=== PATIENT | female | born 1960 | race Caucasian/White ===

== ENCOUNTER 2020-01-25 07:06 | Outpatient (CLI) | payer OTHER, SELFPAY | END 2020-01-25 07:07 | disposition home or self-care (01) | LOC: ANHCOVIDDT 07:06 | PROVIDERS: PCP Family Medicine; Visit Provider Internal Medicine Gastroenterology | DX: Z01.818 Encounter for other preprocedural examination (principal); Z11.59 Encounter for screening for other viral diseases | CPT/HCPCS: 87635; C9803; U0003 ==

== ENCOUNTER 2020-01-27 00:11 | Day surgery (SDC) | payer OTHER, SELFPAY ==
[2020-01-15 10:40] VITALS: BMI 39.5
[2020-01-27 08:49] VITALS: BMI 41.8
[2020-01-27 08:50] VITALS: BP 147/65; PULSE 69; RESP 16; TEMP 36.4; O2SAT 99
--- NOTE | 2020-01-27 08:53 | P.PNAN_ITS ---
Anes - Initial Pre Proc Eval Procedure: Operation Date: 01/27/20 09:30 Proposed Procedures p Screening Colonoscopy - Wilberto Parham MD Date/Time: 01/27/20 08:53 Surgeon: Wilberto Parham MD Pre Op Diagnosis: hx of polyps Patient Data Age: 59 Gender: F Height: 5 ft 2 in Weight: 103.7 kg Last Vital Signs Temp 97.5 F L 01/27/20 08:50 Pulse 69 01/27/20 08:50 Resp 16 01/27/20 08:50 BP 147/65 H 01/27/20 08:50 Pulse Ox 99 01/27/20 08:50 Allergies Allergy/AdvReac Type Severity Reaction Status Date / Time gabapentin Allergy Intermediate tingling Verified 01/27/20 08:47 in lips and tongue....sleepiness carbamazepine Allergy Unknown Drowsy Verified 01/27/20 08:47 varenicline Allergy Unknown drowsiness Verified 01/27/20 08:47 and tingling lips Home Medications Medication Instructions Recorded Confirmed Type lisinopril 40 mg tablet 40 mg PO DAILY #30 tablet 09/21/19 01/15/20 Rx ropinirole 1 mg tablet 1 mg PO TID #90 tablet 09/21/19 01/15/20 Rx sertraline 100 mg tablet 100 mg PO DAILY #30 tablet 09/21/19 01/15/20 Rx naproxen 500 mg tablet 500 mg PO BID #60 tablet 12/14/19 01/15/20 Rx albuterol sulfate [ProAir HFA] 1 puff INHALATION PRN 01/15/20 01/15/20 History buspirone 5 mg PO BID 01/15/20 01/15/20 History fluticasone furoate-vilanterol 1 ea INHALATION DAILY 01/15/20 01/15/20 History [Breo Ellipta] levetiracetam 500 mg PO TID 01/15/20 01/15/20 History phenytoin sodium extended 100 mg PO BID 01/15/20 01/15/20 History Patient hx anesthesia problems: none Family hx anesthesia problems: none PMFSH Past Medical History Medical History (Updated 01/27/20 @ 08:53 by Panda Ball MD) COPD (chronic obstructive pulmonary disease) HTN (hypertension) Seizure disorder Family History Family History (Updated 05/06/14 @ 07:13 by DOCTOR UNKNOWN) Sibling Hypertension Family history of coronary artery disease Mother Patient's mother is Family history of lung cancer Other Family history of cardiovascular disease Family history of seizure disorder Social History Social History Smoking status: Never smoker Second hand tobacco smoke exposure: Yes Alcohol intake: never Anes - Eval Final PreProcedure Day of Procedure 01/27/20 08:53 Patient weight: morbidly obese Heart: regular rate and rhythm Lungs: clear to auscultation Airway: Mallampati scale class III Neurological: alert and oriented Last oral intake: >/= 8 hours ASA classification: IV Emergent: no Anesthetic plan: proceed Anesthesia type and monitoring: general GIVS and standard monitoring Informed Consent: The patient's anesthetic plan and its attendant risks and hosea efits were discussed with the patient/family/POA. Questions were solicited and answers provided to the satisfaction of the patient/family/POA.
--- NOTE | 2020-01-27 08:59 | P.HP_ITS ---
History of Present Illness History of Present Illness Consent: Risks, benefits, and alternatives have been discussed and questions answered. Patient agrees to proceed with procedure. Chief complaint: hx of polyps Narrative: Alberta Smith is a 59 year old female Undergoing screening colonoscopy. She had 2 polyps removed about 5 years ago. [facility] Past Medical History Medical History COPD (chronic obstructive pulmonary disease) HTN (hypertension) Seizure disorder Family History Family History Sibling Hypertension Family history of coronary artery disease Mother Patient's mother is Family history of lung cancer Other Family history of cardiovascular disease Family history of seizure disorder Social History Social History Smoking status: Never smoker Second hand tobacco smoke exposure: Yes Alcohol intake: never Meds Home Medications and Allergies Home Medications Medication Instructions Recorded Confirmed Type lisinopril 40 mg tablet 40 mg PO DAILY #30 tablet 09/21/19 01/15/20 Rx ropinirole 1 mg tablet 1 mg PO TID #90 tablet 09/21/19 01/15/20 Rx sertraline 100 mg tablet 100 mg PO DAILY #30 tablet 09/21/19 01/15/20 Rx naproxen 500 mg tablet 500 mg PO BID #60 tablet 12/14/19 01/15/20 Rx albuterol sulfate [ProAir HFA] 1 puff INHALATION PRN 01/15/20 01/15/20 History buspirone 5 mg PO BID 01/15/20 01/15/20 History fluticasone furoate-vilanterol 1 ea INHALATION DAILY 01/15/20 01/15/20 History [Breo Ellipta] levetiracetam 500 mg PO TID 01/15/20 01/15/20 History phenytoin sodium extended 100 mg PO BID 01/15/20 01/15/20 History Allergies Allergy/AdvReac Type Severity Reaction Status Date / Time gabapentin Allergy Intermediate tingling Verified 01/27/20 08:47 in lips and tongue....sleepiness carbamazepine Allergy Unknown Drowsy Verified 01/27/20 08:47 varenicline Allergy Unknown drowsiness Verified 01/27/20 08:47 and tingling lips Vital Signs Vital Signs - 24 hr 01/27/20 08:50 Temperature 36.4 C L Pulse Rate 69 Respiratory Rate 16 Blood Pressure 147/65 H Pulse Oximetry 99 Exam Resp: Auscultation: clear to auscultation bilaterally Cardio: Rate: regular rate Rhythm: regular rhythm GI: GI Palp: Yes Soft to palpation and No Tenderness to palpation present (GI) Assessment and Plan Assessment and plan (1) Colon cancer screening: Code(s): Z12.11 - Encounter for screening for malignant neoplasm of colon Status: Acute Assessment and Plan: Colonoscopy with possible biopsy or polypectomy or cautery or injection of substances.
[2020-01-27] MEDS: LACTATED RINGERS 1,000 ML 150 ML IV CONT (09:03)
[2020-01-27 09:23] VITALS: BP 121/54; PULSE 67; RESP 20; O2SAT 95
[2020-01-27 09:33] VITALS: BP 130/58; PULSE 67; RESP 21; O2SAT 96
[2020-01-27 09:43] VITALS: BP 141/54; PULSE 68; RESP 22; O2SAT 97
== END 2020-01-27 09:53 | disposition home or self-care (01) ==
PROVIDERS: PCP Family Medicine; Visit Provider Internal Medicine Gastroenterology
PROC: 0DJD8ZZ Inspection of Lower Intestinal Tract, Via Natural or Artificial Opening Endoscopic (ICD-10-PCS; CPT 45378; principal; 2020-01-27 09:30)
DX: Z12.11 Encounter for screening for malignant neoplasm of colon (principal); Z86.010 Personal history of colon polyps; I10 Essential (primary) hypertension; J44.9 Chronic obstructive pulmonary disease, unspecified; G40.909 Epilepsy, unspecified, not intractable, without status epilepticus; E66.01 Morbid (severe) obesity due to excess calories; Z68.41 Body mass index [BMI] 40.0-44.9, adult
CPT/HCPCS: 45378; J2704; J7120

== ENCOUNTER 2020-03-21 11:33 | Outpatient (CLI) | payer OTHER, SELFPAY ==
[2020-03-21 12:24] LABS: Hematocrit 46.6 % (37.0-47.0); Mean Corpuscular HGB Conc 32.2 g/dl (32-36); Mean Corpuscular Hemoglobin 31.4 pg (26-34); Mean Corpuscular Volume 97.7 fl (80-100); Mean Platelet Volume 10.5 fl (7.4-10.4); Platelet Count Result 276 k/mm3 (150-375); Red Blood Count 4.77 M/mm3 (4.2-5.4); Red Cell Distribution Width 13.1 % (11.5-14.5); White Blood Count 8.5 K/mm3 (4.5-10.0)
[2020-03-21 12:37] LABS: Alanine Aminotransferase 14 U/L (4-35); Albumin Level 4.2 g/dL (3.5-5.1); Alkaline Phosphatase 114 U/L (38-126); Aspartate Amino Transferase 24 U/L (14-36); Bilirubin,Total 0.8 mg/dL (0.2-1.3); Blood Urea Nitrogen 16 mg/dL (7-17); Calcium 9.3 mg/dL (8.4-10.2); Carbon Dioxide 28 mmol/L (22-30); Chloride 106 mmol/L (98-107); Cholesterol 173 mg/dL (0-200); Estimated Glomerular Filt Rate 51; Glucose 96 mg/dL (65-105); HDL Direct 42 mg/dL; Potassium 4.5 mmol/L (3.4-5.0); Sodium 139 mmol/L (137-145); Triglycerides 72 mg/dL (<150)
[2020-03-21 12:47] LABS: LDL Cholesterol Direct 113 mg/dL
== END 2020-03-21 11:34 | disposition home or self-care (01) ==
LOC: ANHLAB 11:38
PROVIDERS: PCP Family Medicine; Visit Provider Physician Assistant
DX: F32.9 Major depressive disorder, single episode, unspecified (principal); E78.5 Hyperlipidemia, unspecified
CPT/HCPCS: 36415; 80053; 80061; 85027

== ENCOUNTER 2020-04-06 10:13 | Outpatient (CLI) | payer OTHER, SELFPAY ==
[2020-04-06 10:51] LABS: Anion Gap 12.6 mmol/L (7-16); Blood Urea Nitrogen 18 mg/dL (7-17); Carbon Dioxide 25 mmol/L (22-30); Chloride 105 mmol/L (98-107); Estimated Glomerular Filt Rate 57; Glucose 97 mg/dL (65-105); Potassium 4.6 mmol/L (3.4-5.0); Sodium 138 mmol/L (137-145)
== END 2020-04-06 10:14 | disposition home or self-care (01) ==
PROVIDERS: PCP Family Medicine; Visit Provider Physician Assistant
DX: N18.9 Chronic kidney disease, unspecified (principal)
CPT/HCPCS: 36415; 80048

== ENCOUNTER 2020-04-28 07:53 | Outpatient (CLI) | payer OTHER, SELFPAY ==
--- NOTE | ~2020-04-28 | US_ITS ---
EXAMINATION: US arterial ankle brachial ind DATE: 04/28/2020 08:36 INDICATION: Peripheral vascular disease, unspecified. TECHNIQUE: Segmental pressures and plethysmographic and Doppler waveforms of the brachial and lower e xtremity arteries were obtained. COMPARISON: None. FINDINGS: Right and left brachial artery pressures of 124 mm Hg and 134 mm Hg, respectively, are concordant (no rmal difference <= 30 mmHg). The right ankle-brachial index (MIRANDA) is 1.04 (normal >= 0.9-1.0). The right great toe-brachial index (TBI) is 0.59 (normal >= 0.65). Arterial Doppler waveforms are biphasic at the ankle. The left MIRANDA is 1.01. The left TBI is 0.90. Arterial Doppler waveforms are at least biphasic at the a nkle. IMPRESSION: 1. Mildly decreased right TBI and normal right MIRANDA, consistent with right-sided arterial occlusive di sease. Note that MIRANDA may be overestimated if arteries are calcified. Reviewed, dictated and finalized at location A. IMPRESSION: 1. Mildly decreased right TBI and normal right MIRANDA, consistent with right-sided arterial occlusive disease. Note that MIRANDA may be overestimated if arteries are calcified.
--- NOTE | ~2020-04-28 | CT_ITS ---
EXAMINATION: CT lung screening DATE: 04/28/2020 08:35 INDICATION: Personal history of tobacco dependence, current smoker with 30 pack year history TECHNIQUE: Computed tomography (CT) of the chest was performed without intravenous contrast. The dose -length product (DLP) was 150.29 mGy-cm. Automated exposure control and iterative reconstruction tech [employer] were employed. COMPARISON: 06/04/2018 FINDINGS: There is mild emphysema. No suspicious pulmonary nodule is identified. The lungs are free o f acute opacities. There is no pleural effusion or pneumothorax. No pathologically enlarged thoracic lymph nodes are identified. The heart size is normal. Calcified coronary artery atherosclerosis is no danii. The gallbladder is surgically absent. There is mild thoracic spondylosis. IMPRESSION: 1. Lung-RADS category 1: Negative. Continue annual screening with noncontrast low-dose chest CT in 12 months. Reviewed, dictated and finalized at location A. IMPRESSION: 1. Lung-RADS category 1: Negative. Continue annual screening with noncontrast l ow-dose chest CT in 12 months.
== END 2020-04-28 07:54 | disposition home or self-care (01) ==
PROVIDERS: PCP Family Medicine; Visit Provider Physician Assistant
DX: I73.9 Peripheral vascular disease, unspecified (principal); Z72.0 Tobacco use; M79.604 Pain in right leg; M79.605 Pain in left leg; E11.9 Type 2 diabetes mellitus without complications; I10 Essential (primary) hypertension; Z87.891 Personal history of nicotine dependence
CPT/HCPCS: 93922; G0297

== ENCOUNTER 2020-05-18 14:13 | Outpatient (CLI) | payer OTHER, SELFPAY ==
--- NOTE | ~2020-05-18 | CT_ITS ---
EXAMINATION: CTA brain EXAM DATE: 05/18/2020 15:13 INDICATION: Central headache. Family history cerebral aneurysm. TECHNIQUE: Noncontrast head CT. Spiral CT angiogram cerebral arteries performed with intravenous in jection of 100 mL Omnipaque 350. Axial, coronal and sagittal images reviewed. Additional reformatted images created on dedicated 3-D workstation. The dose-length product (DLP) for this examination was 1012.22 mGy-cm. The exposure was tailored according to patient size, and iterative reconstruction (ASIR) was used as additional dose reduction technique. Comparison is made to prior examination from 11/23/2015. FINDINGS: Mild scattered bilateral carotid siphon arterial sclerosis with approximately 20 % stenosi s on the left. There is no distal carotid or vertebral basilar arterial dissection or fibromuscular dysplasia. There are no cerebral artery aneurysms. There is symmetric cerebral artery arborization. T he sagittal, transverse and sigmoid sinuses enhance normally, no venous sinus thrombosis. Internal ce rebral veins also enhance normally. There are punctate old bilateral caudate head lacunar infarctions. There is no acute intraparenchymal hemorrhage. No evidence of intraparenchymal brain mass lesion. No evidence of acute infarction. Th ere is no mass effect or midline shift. There is no obstructive hydrocephalus suspected. There are n o extra-axial collections. There are no calvarial acute fractures. IMPRESSION: 1. Mild bilateral carotid siphon arterial sclerosis with 20% stenosis on the left. 2. Punctate old caudate head lacunar infarctions. Reviewed, dictated and finalized at location A. IMPRESSION: 1. Mild bilateral carotid siphon arterial sclerosis with 20% stenosis on the l eft. 2. Punctate old caudate head lacunar infarctions.
[2020-05-18 15:01] LABS: Estimated Glomerular Filt Rate 46
== END 2020-05-18 14:14 | disposition home or self-care (01) ==
PROVIDERS: PCP Family Medicine; Visit Provider Psychiatry & Neurology Neurology
DX: R51 Headache (principal); R93.0 Abnormal findings on diagnostic imaging of skull and head, not elsewhere classified
CPT/HCPCS: 70496; Q9967

== ENCOUNTER 2020-07-05 16:43 | Outpatient (CLI) | payer OTHER, SELFPAY ==
[2020-07-05 17:12] LABS: Hemoglobin A1C 5.1 % (<5.7)
== END 2020-07-05 16:44 | disposition home or self-care (01) ==
PROVIDERS: PCP Family Medicine; Visit Provider Family Medicine
DX: R73.01 Impaired fasting glucose (principal)
CPT/HCPCS: 36415; 83036

== ENCOUNTER 2020-08-19 11:24 | Outpatient (CLI) | payer OTHER, SELFPAY ==
--- NOTE | ~2020-08-19 | XR_ITS ---
XR lumbar spine 2-3V DATE: 08/19/2020 11:52 INDICATION: Low back pain TECHNIQUE: AP, lateral and coned lateral lumbosacral views COMPARISON: 06/14/2013 MRI lumbar spine 05/14/2013 lumbar spine FINDINGS: Diffuse osteopenia. Minimal levoscoliosis of the lumbar spine. No fracture or bone destruction is detected. The included lower thoracic and lumbar pedicles are inta ct. There is minimal retrolisthesis at L2-3. There is moderate degenerative disc disease at L1-2, L2-3, m ild degenerative disease at L3-4, L4-5. The sacroiliac joints are intact. Surgical clip overlies right upper quadrant, likely due to cholecystectomy. There is abdominal aortic and iliac arterial calcification without apparent aneurysm. IMPRESSION: Mild to moderate degenerative disease at L1-2 through L4-5, with chronic minimal retrolis thesis at L2-3 Reviewed, dictated and finalized at location A. HING SALES ASSISTANT IMPRESSION: Mild to moderate degenerative disease at L1-2 through L4-5, with ch ronic minimal retrolisthesis at L2-3
--- NOTE | ~2020-08-19 | XR_ITS ---
EXAMINATION: XR hip LT min 2V DATE: 08/19/2020 11:52 INDICATION: Left hip pain. TECHNIQUE: 2 views of left hip were obtained. COMPARISON: Left hip radiograph 05/14/2013 FINDINGS: Bone alignment is normal. No fracture. There is mild left hip osteoarthritis. IMPRESSION: 1. Mild left hip osteoarthritis. Reviewed, dictated and finalized at location B. CTOR CREDIT RISK
== END 2020-08-19 11:25 ==
PROVIDERS: PCP Family Medicine; Visit Provider Physician Assistant
DX: M16.12 Unilateral primary osteoarthritis, left hip (principal); M51.36 Other intervertebral disc degeneration, lumbar region
CPT/HCPCS: 72100; 73502

== ENCOUNTER 2020-11-10 15:43 | Outpatient (CLI) | payer OTHER, SELFPAY ==
--- NOTE | ~2020-11-10 | MM_ITS ---
EXAMINATION: MM screening elizabeth BI w [place] HISTORY: Screening TECHNIQUE: Craniocaudal and mediolateral oblique 3-D tomosynthesis images were obtained and synthetic 2-D images were generated. CAD analysis was submitted and interpreted. COMPARISON: Comparison to multiple prior studies sequentially, with oldest reviewed study dated 05/21. BREAST PARENCHYMAL COMPOSITION: There are scattered areas of fibroglandular density. FINDINGS: There is no evidence of suspicious mass, calcification, or architectural distortion to sugg est malignancy in either breast. There has been no suspicious interval change. IMPRESSION: 1. No mammographic evidence of malignancy. 2. Recommend routine screening mammography in one year. BI-RADS Category 1: Negative Reviewed, dictated and finalized at location A. TRAINING
== END 2020-11-10 15:44 | disposition home or self-care (01) ==
LOC: ANHIMG 15:45
PROVIDERS: PCP Family Medicine; Visit Provider Family Medicine
DX: Z12.31 Encounter for screening mammogram for malignant neoplasm of breast (principal)
CPT/HCPCS: 77063; 77067

== ENCOUNTER 2021-04-19 13:21 | Outpatient (CLI) | payer OTHER, SELFPAY ==
[2021-04-19 16:11] LABS: Alanine Aminotransferase 14 U/L (4-35); Albumin Level 4.2 g/dL (3.5-5.1); Alkaline Phosphatase 98 U/L (38-126); Anion Gap 7 mmol/L (8-16); Aspartate Amino Transferase 23 U/L (14-36); Bilirubin,Total 0.6 mg/dL (0.2-1.3); Blood Urea Nitrogen 14 mg/dL (7-17); Calcium 9.5 mg/dL (8.4-10.2); Carbon Dioxide 24 mmol/L (22-30); Chloride 108 mmol/L (98-107); Estimated Glomerular Filt Rate 57; Glucose 83 mg/dL (65-110); Potassium 4.7 mmol/L (3.4-5.0); Sodium 139 mmol/L (137-145)
== END 2021-04-19 13:22 | disposition home or self-care (01) ==
LOC: ANHLAB 13:26
PROVIDERS: PCP Family Medicine; Visit Provider Family Medicine
DX: I12.9 Hypertensive chronic kidney disease with stage 1 through stage 4 chronic kidney disease, or unspecified chronic kidney disease (principal)
CPT/HCPCS: 36415; 80053

== ENCOUNTER 2021-10-18 13:48 | Outpatient (CLI) | payer OTHER, SELFPAY ==
[2021-10-18 14:41] LABS: Add Urine Microscopic? NO; Appearance Urine Clear (Clear); Bilirubin Urine Negative (Negative); Blood Urine Negative (Negative); Color Urine Yellow (Yellow); Glucose Urine UA Negative (Negative); Hemoglobin 15.7 g/dL (12.0-15.0); Ketones Urine Negative (Negative); Leukocyte Esterase Ur Negative LEU/UL (NEGATIVE); Mean Corpuscular Hemoglobin 31.4 pg (26-34); Mean Platelet Volume 10.2 fl (7.4-10.4); Nitrate Urine Negative (Negative); Platelet Count Result 320 k/mm3 (150-375); Protein Urine Negative (Negative); Red Cell Distribution Width 13.2 % (11.5-14.5); Specific Grav Ur 1.023 (1.001-1.035); Urobilinogen Urine Negative mg/dL (<2.0); White Blood Count 9.7 K/mm3 (4.5-10.0)
== END 2021-10-18 13:49 | disposition home or self-care (01) ==
PROVIDERS: PCP Family Medicine; Visit Provider Nurse Practitioner Family
DX: E78.2 Mixed hyperlipidemia (principal); R53.83 Other fatigue; I12.9 Hypertensive chronic kidney disease with stage 1 through stage 4 chronic kidney disease, or unspecified chronic kidney disease; N18.30 Chronic kidney disease, stage 3 unspecified
CPT/HCPCS: 36415; 80053; 80061; 81003; 84443; 85027

== ENCOUNTER 2021-10-19 10:31 | Outpatient (CLI) | payer OTHER, SELFPAY ==
[2021-10-19 11:27] LABS: Alanine Aminotransferase 14 U/L (4-35); Albumin Level 4.2 g/dL (3.5-5.1); Alkaline Phosphatase 99 U/L (38-126); Anion Gap 6 mmol/L (8-16); Aspartate Amino Transferase 24 U/L (14-36); Bilirubin,Total 0.7 mg/dL (0.2-1.3); Blood Urea Nitrogen 16 mg/dL (7-17); Calcium 9.4 mg/dL (8.4-10.2); Carbon Dioxide 24 mmol/L (22-30); Chloride 108 mmol/L (98-107); Cholesterol 205 mg/dL (0-200); Estimated Glomerular Filt Rate 51; Glucose 112 mg/dL (65-110); HDL Direct 40 mg/dL; Potassium 4.3 mmol/L (3.4-5.0); Sodium 138 mmol/L (137-145); Triglycerides 120 mg/dL (<150)
[2021-10-19 11:38] LABS: LDL Cholesterol Direct 121 mg/dL
== END 2021-10-19 10:32 | disposition home or self-care (01) ==
PROVIDERS: PCP Family Medicine; Visit Provider Nurse Practitioner Family
DX: E78.2 Mixed hyperlipidemia (principal); I12.9 Hypertensive chronic kidney disease with stage 1 through stage 4 chronic kidney disease, or unspecified chronic kidney disease; N18.30 Chronic kidney disease, stage 3 unspecified; R53.83 Other fatigue
CPT/HCPCS: 36415; 80053; 80061; 84443

== ENCOUNTER 2021-11-30 15:47 | Outpatient (CLI) | payer OTHER, SELFPAY ==
--- NOTE | ~2021-11-30 | MM_ITS ---
EXAMINATION: MM screening [place] BI w [place] HISTORY: Screening mammogram TECHNIQUE: Craniocaudal and mediolateral oblique 3-D tomosynthesis images were obtained and synthetic 2-D images were generated. CAD analysis was submitted and interpreted. COMPARISON: 11/2020, 09/29/2019, 06/04/2018 bilateral screening mammogram examinations BREAST PARENCHYMAL COMPOSITION: The breasts are almost entirely fatty. FINDINGS: There is no evidence of suspicious mass, calcification, or architectural distortion to sugg est malignancy in either breast. There has been no suspicious interval change. IMPRESSION: 1. No mammographic evidence of malignancy. 2. Recommend routine screening mammography in one year. BI-RADS Category 1: Negative Reviewed, dictated and finalized at location A.
== END 2021-11-30 15:48 | disposition home or self-care (01) ==
PROVIDERS: PCP Family Medicine; Visit Provider Nurse Practitioner Family
DX: Z12.31 Encounter for screening mammogram for malignant neoplasm of breast (principal)
CPT/HCPCS: 77063; 77067

== ENCOUNTER 2022-01-12 14:01 | Outpatient (CLI) | payer OTHER, SELFPAY ==
--- NOTE | ~2022-01-12 | XR_ITS ---
XR knee LT min 4V DATE: 01/12/2022 14:39 INDICATION: Left knee pain. Patient fell up stairs yesterday TECHNIQUE: [place] and AP, oblique and lateral views COMPARISON: 05/31/2014 AP and PA left knee FINDINGS: There is periarticular spurring at all 3 compartments and mild loss of lateral compartment joint space. No fracture or dislocation or joint effusion. No radiopaque intra-articular loose body or chondrocalc inosis. No periosteal reaction or bone destruction. IMPRESSION: Tricompartment osteoarthritis Reviewed, dictated and finalized at location A.
--- NOTE | ~2022-01-12 | XR_ITS ---
XR knee RT min 4V DATE: 01/12/2022 14:40 INDICATION: Right knee pain TECHNIQUE: 4 views COMPARISON: 06/08/2014 MR right knee 05/31/2014 right knee FINDINGS: No fracture or dislocation is detected. No periosteal reaction or bone destruction. No radi opaque intra-articular loose body or chondrocalcinosis. There is mild periarticular spurring at all 3 compartments. There is mild loss of height of medial co mpartment joint space. IMPRESSION: Tricompartment osteoarthritis Reviewed, dictated and finalized at location A.
--- NOTE | ~2022-01-12 | XR_ITS ---
XR foot LT min 3V DATE: 01/12/2022 14:40 INDICATION: Lateral pain and swelling following a fall yesterday TECHNIQUE: 4 views COMPARISON: None FINDINGS: No fracture or dislocation, periosteal reaction or bone destruction is detected. Joint spac es are relatively preserved. No erosive change. IMPRESSION: No fracture or dislocation is detected Reviewed, dictated and finalized at location A.
--- NOTE | ~2022-01-12 | XR_ITS ---
XR ankle LT min 3V DATE: 01/12/2022 14:40 INDICATION: Lateral ankle pain and swelling following a fall yesterday TECHNIQUE: 4 views COMPARISON: None FINDINGS: There is slight plantar calcaneal enthesopathy. No fracture or dislocation of the ankle or disruption of the ankle mortise. No periosteal reaction or bone destruction. IMPRESSION: No ankle fracture or dislocation Reviewed, dictated and finalized at location A.
== END 2022-01-12 14:02 | disposition home or self-care (01) ==
PROVIDERS: PCP Family Medicine; Visit Provider Physician Assistant
DX: M17.0 Bilateral primary osteoarthritis of knee (principal); M25.572 Pain in left ankle and joints of left foot; M79.672 Pain in left foot; Z91.81 History of falling
CPT/HCPCS: 73564; 73610; 73630

== ENCOUNTER 2022-02-08 13:37 | Outpatient (CLI) | payer OTHER, SELFPAY ==
--- NOTE | ~2022-02-08 | US_ITS ---
EXAMINATION: US venous doppler [facility] DATE: 02/08/2022 14:12 INDICATION: Bilateral lower limb pain TECHNIQUE: Benoit scale images without and with compression and Doppler images of the bilateral lower e xtremity veins were obtained. COMPARISON: None FINDINGS: The right common femoral vein, profunda femoral vein, femoral vein, popliteal vein, peroneal trunk, p osterior tibial veins, and greater saphenous vein are patent. The left common femoral vein, profunda femoral vein, femoral vein, popliteal vein, peroneal trunk, po sterior tibial veins, and greater saphenous vein are patent. IMPRESSION: 1. Patent bilateral lower extremity veins. No evidence of deep venous thrombosis. Reviewed, dictated and finalized at location F. IMPRESSION: 1. Patent bilateral lower extremity veins. No evidence of deep venous thrombosi s.
== END 2022-02-08 13:38 | disposition home or self-care (01) ==
PROVIDERS: PCP Family Medicine; Visit Provider Physician Assistant
DX: R60.0 Localized edema (principal); Z91.81 History of falling
CPT/HCPCS: 93970

== ENCOUNTER 2022-02-08 14:38 | Outpatient (CLI) | payer OTHER, SELFPAY ==
[2022-02-08 15:21] LABS: Alanine Aminotransferase 15 U/L (6-35); Albumin Level 4.4 g/dL (3.5-5.1); Alkaline Phosphatase 86 U/L (38-126); Anion Gap 5 mmol/L (8-16); Aspartate Amino Transferase 32 U/L (14-36); Bilirubin,Total 0.5 mg/dL (0.2-1.3); Blood Urea Nitrogen 13 mg/dL (7-17); Calcium 9.3 mg/dL (8.4-10.2); Carbon Dioxide 29 mmol/L (22-30); Chloride 106 mmol/L (98-107); Cholesterol 133 mg/dL (0-200); Estimated Glomerular Filt Rate 46; Glucose 95 mg/dL (65-110); HDL Direct 45 mg/dL; Potassium 4.7 mmol/L (3.4-5.0); Sodium 140 mmol/L (137-145); Triglycerides 79 mg/dL (<150)
[2022-02-08 15:28] LABS: Hemoglobin A1C 5.4 % (<5.7)
[2022-02-08 15:32] LABS: LDL Cholesterol Direct 65 mg/dL
== END 2022-02-08 14:39 | disposition home or self-care (01) ==
LOC: ANHLAB 14:39
PROVIDERS: PCP Family Medicine; Visit Provider Physician Assistant
DX: I12.9 Hypertensive chronic kidney disease with stage 1 through stage 4 chronic kidney disease, or unspecified chronic kidney disease (principal); N18.31 Chronic kidney disease, stage 3a; F17.200 Nicotine dependence, unspecified, uncomplicated; R73.01 Impaired fasting glucose; E78.2 Mixed hyperlipidemia
CPT/HCPCS: 36415; 80053; 80061; 83036; 93970

== ENCOUNTER 2022-11-01 10:30 | Outpatient (CLI) | payer OTHER, SELFPAY ==
[2022-11-01 10:58] LABS: Hematocrit 49.6 % (37.0-47.0); Hemoglobin 16.3 g/dL (12.0-15.0); Mean Corpuscular HGB Conc 32.9 g/dl (32-36); Mean Corpuscular Hemoglobin 31.2 pg (26-34); Mean Corpuscular Volume 94.8 fl (80-100); Mean Platelet Volume 9.5 fl (7.4-10.4); Platelet Count Result 283 k/mm3 (150-375); Red Blood Count 5.23 M/mm3 (4.2-5.4); Red Cell Distribution Width 13.2 % (11.5-14.5)
[2022-11-01 11:11] LABS: Appearance Urine Clear (Clear); Bilirubin Urine Negative (Negative); Blood Urine 1+ (Negative); Color Urine Yellow (Yellow); Glucose Urine UA Negative (Negative); Ketones Urine Negative (Negative); Leukocyte Esterase Ur Negative LEU/UL (NEGATIVE); Nitrate Urine Negative (Negative); Protein Urine Negative (Negative); Specific Grav Ur 1.025 (1.001-1.035); Urobilinogen Urine 0.2 mg/dL (<2.0); pH Urine 5.5 (5.0-9.0)
[2022-11-01 11:12] LABS: Alanine Aminotransferase 20 U/L (6-35); Albumin Level 4.4 g/dL (3.5-5.1); Alkaline Phosphatase 119 U/L (38-126); Anion Gap 5 mmol/L (8-16); Aspartate Amino Transferase 24 U/L (14-36); Bilirubin,Total 0.7 mg/dL (0.2-1.3); Blood Urea Nitrogen 13 mg/dL (7-17); Calcium 8.9 mg/dL (8.4-10.2); Carbon Dioxide 24 mmol/L (22-30); Chloride 106 mmol/L (98-107); Cholesterol 123 mg/dL (0-200); Estimated Glomerular Filt Rate > 60; Glucose 103 mg/dL (65-110); HDL Direct 37 mg/dL; Potassium 4.2 mmol/L (3.4-5.0); Sodium 135 mmol/L (137-145); Triglycerides 118 mg/dL (<150)
[2022-11-01 11:16] LABS: Bacteria Urine Trace /hpf; Mucus Urine Rare /lpf; RBC Urine 0-2 /hpf (0-2); Squamous Epithelial Cell Urine Few /hpf (Few); WBC Urine 0-3 /hpf (0-3)
[2022-11-01 11:17] LABS: Add Urine Microscopic? YES
[2022-11-01 11:23] LABS: LDL Cholesterol Direct 56 mg/dL
[2022-11-01 11:27] LABS: Hemoglobin A1C 5.5 % (<5.7)
== END 2022-11-01 10:31 | disposition home or self-care (01) ==
LOC: ANHLAB 10:32
PROVIDERS: PCP Family Medicine; Visit Provider Family Medicine
DX: Z00.00 Encounter for general adult medical examination without abnormal findings (principal); E78.2 Mixed hyperlipidemia; R73.01 Impaired fasting glucose; I12.9 Hypertensive chronic kidney disease with stage 1 through stage 4 chronic kidney disease, or unspecified chronic kidney disease; N18.30 Chronic kidney disease, stage 3 unspecified
CPT/HCPCS: 36415; 80053; 80061; 81001; 83036; 84443; 85027

== ENCOUNTER 2023-03-05 10:18 | Outpatient (CLI) | payer OTHER, SELFPAY ==
--- NOTE | ~2023-03-05 | CT_ITS ---
CT Scan of the Chest without Contrast: Clinical Indication: Lung cancer screening, personal history of nicotine dependence Technique: Contiguous sections were acquired throughout the chest without intravenous contrast. Dose reduction technique was used on this scan by utilizing automated exposure control and iterative recon struction technique. The dose-length product (DLP) was 209.10 mGy-cm. COMPARISON: 04/28/2020, 06/04/2018 Findings: There is no evidence of any significant mediastinal, hilar or axillary lymphadenopathy. Coronary adela ry calcifications and aortic atherosclerotic calcifications are present. There is no evidence of pleural or pericardial effusion. . There is probable atelectasis and/or scarring at the medial right upper lobe. No discrete pulmonary nodule evident. Images through the upper abdomen reveal no abnormalities. Impression: Lung RADS 2: Benign appearance. 12 month follow-up screening CT advised. Probable atelectasis or scarring at the medial right upper lobe. Reviewed, dictated and finalized at [facility]. Impression: Lung RADS 2: Benign appearance. 12 month follow-up screening CT advised. Probable atelectasis or scarring at the medial right upper lobe.
== END 2023-03-05 10:19 | disposition home or self-care (01) ==
PROVIDERS: PCP Family Medicine; Visit Provider Physician Assistant
DX: Z12.2 Encounter for screening for malignant neoplasm of respiratory organs (principal); F17.210 Nicotine dependence, cigarettes, uncomplicated
CPT/HCPCS: 71271

== ENCOUNTER 2023-06-17 13:27 | Outpatient (CLI) | payer OTHER, SELFPAY ==
--- NOTE | ~2023-06-17 | DEXA_ITS ---
Bone Density Report Name: AKHIL PATHAK Age: 63 Sex: Female Ethnicity: White Date of : 1960 Indication: postmenopausal; screening for osteoporosis; prior fracture; seizure disorder; hysterectomy; Referring Provider: VIKTOR IBARRA Study: Bone densitometry was performed. Exam Date: June 17, 2023 Accession number: [id number] Bone Density: Region BMD T-score Z-score Classification AP Spine(L1-L4) 0.998 -0.4 1.1 Normal Femoral Neck (Left) 0.542 -2.8 -1.4 Osteoporosis Total Hip (Left) 0.751 -1.6 -0.5 Osteopenia Femoral Neck (Right) 0.619 -2.1 -0.7 Osteopenia Total Hip (Right) 0.795 -1.2 -0.1 Osteopenia Total Hip Mean 0.773 -1.4 -0.3 Osteopenia World Health Organization criteria for BMD impression classify patients as: Normal (T-score at or above -1.0), Osteopenia (T-score between -1.0 and -2.5), or Osteoporosis (T-score at or below -2.5). 10-year Fracture Risk: FRAX not reported because: Some T-score for Spine Total or Hip Total or Femoral Neck at or below -2.5 Previous Exams: Region Exam Age BMD T-score BMD Change BMD Change Date g/cm2 vs Baseline vs Previous AP Spine (L1-L4) 06/17/2023 63 0.998 -0.4 0.009 (0.9%) 0.009 (0.9%) 05/21/2017 57 0.989 -0.5 Total Hip(Left) 06/17/2023 63 0.751 -1.6 -0.097 (-11.4% -0.097 (-11.4% 05/21/2017 57 0.848 -0.8 Total Hip(Right) 06/17/2023 63 0.795 -1.2 -0.072 (-8.3%) -0.072 (-8.3%) 05/21/2017 57 0.867 -0.6 *Denotes significance at 95% confidence level, LSC for AP Spine = 0.022 g/cm2, LSC for Total Hip = 0.027 g/cm2 Clinical Information Provided by Patient: Has had a low trauma fracture Smokes Has the following medical conditions: Any Seizure Disorders, Hysterectomy Patient maximum height was 63 Menopause Age: 43 Drinks caffeinated beverages Onset of menses at age 13 Number of children 0 Impression: The patient has established osteoporosis, based on the Left Femoral Neck T-score and the existence of a prior fracture. The patient has risk factors, including: smoking, previous fracture. The BMD for the Total Hip(Left) decreased, changing by -11.4% since the last DXA exam. The BMD for the Total Hip(Right) decreased, changing by -8.3% since the last DXA exam. Discussion: HIGH RISK OF FRACTURE. BONE DENSITY IS UNDESIRABLY LOW AT ONE OR MORE SKELETAL SITES, CONSISTENT WITH POSTMENOPAUSAL OSTEOPOROSIS. This patient's lowest T-score, in a patient who has previously
[2023-06-17 14:29] LABS: Basophils Percent Auto 0.3 % (0.2-1.2); Eosinophils Absolute Auto 0.1 K/mm3 (0-0.3); Eosinophils Percent Auto 0.7 % (0-4.4); Hematocrit 45.6 % (37.0-47.0); Hemoglobin 14.8 g/dL (12.0-15.0); Immature Granulocyte Absolute 0.04 K/mm3 (0.00-0.031); Immature Granulocyte Percent A 0.4 % (0-0.5); Lymphocytes Absolute Auto 2.63 K/mm3 (0.9-3.2); Lymphocytes Percent Auto 28.9 % (18.3-44.2); Mean Corpuscular HGB Conc 32.5 g/dl (32-36); Mean Corpuscular Hemoglobin 31.1 pg (26-34); Mean Corpuscular Volume 95.8 fl (80-100); Mean Platelet Volume 10.1 fl (7.4-10.4); Monocytes Absolute Auto 0.6 K/mm3 (0.1-0.6); Monocytes Percent Auto 6.8 % (2.6-8.5); Neutrophils Absolute Auto 5.7 K/mm3 (1.3-6.7); Neutrophils Percent Auto 62.9 % (45.5-73.1); Platelet Count Result 295 k/mm3 (150-375); Red Blood Count 4.76 M/mm3 (4.2-5.4); Red Cell Distribution Width 12.5 % (11.5-14.5); White Blood Count 9.1 K/mm3 (4.5-10.0)
[2023-06-17 14:41] LABS: Alanine Aminotransferase 15 U/L (6-35); Albumin Level 3.9 g/dL (3.5-5.1); Alkaline Phosphatase 103 U/L (38-126); Anion Gap 6 mmol/L (8-16); Aspartate Amino Transferase 21 U/L (14-36); Bilirubin,Total 0.4 mg/dL (0.2-1.3); Blood Urea Nitrogen 13 mg/dL (7-17); Calcium 8.9 mg/dL (8.4-10.2); Carbon Dioxide 26 mmol/L (22-30); Chloride 107 mmol/L (98-107); Estimated Glomerular Filt Rate 50; Glucose 80 mg/dL (65-110); Potassium 4.1 mmol/L (3.4-5.0); Sodium 139 mmol/L (137-145)
[2023-06-17 17:02] LABS: Hemoglobin A1C 5.3 % (<5.7)
== END 2023-06-17 13:28 | disposition home or self-care (01) ==
LOC: ANHIMG 13:27
PROVIDERS: PCP Family Medicine; Visit Provider Physician Assistant
DX: M85.80 Other specified disorders of bone density and structure, unspecified site (principal); M81.0 Age-related osteoporosis without current pathological fracture; I12.9 Hypertensive chronic kidney disease with stage 1 through stage 4 chronic kidney disease, or unspecified chronic kidney disease; N18.31 Chronic kidney disease, stage 3a; R73.01 Impaired fasting glucose; D58.2 Other hemoglobinopathies
CPT/HCPCS: 36415; 77080; 80053; 83036; 85025

== ENCOUNTER 2024-02-28 14:34 | Emergency (ER) | payer OTHER, SELFPAY ==
--- NOTE | 2024-02-28 15:09 | ECG_ITS ---
Test Date: 2024-02-28 15:19:28 Measurements Intervals [place] Rate: 48 P: 40 DC: 130 QRS: 42 QRSD: 88 T: 68 QT: 474 QTc: 428 Interpretive Statements SINUS BRADYCARDIA NONSPECIFIC T-WAVE ABNORMALITY ABNORMAL ECG ] No previous ECG available for comparison Electronically Signed On 02-28-2024 15:30:32 CDT by Freddie Corrigan M.D.
[2024-02-28 15:17] VITALS: BP 117/59; PULSE 68; RESP 16; TEMP 36.4; O2SAT 100
[2024-02-28 15:22] VITALS: PULSE 50
[2024-02-28] MEDS: SODIUM CHLORIDE 0.9% IV 1,000 ML 999 ML IV CONT ×2 (15:24→15:58)
[2024-02-28 15:25] LABS: Glucose Point of Care 147 mg/dl (65-105)
[2024-02-28 15:25] LABS: Basophils Percent Auto 0.3 % (0.2-1.2); Eosinophils Absolute Auto 0.1 K/mm3 (0-0.3); Eosinophils Percent Auto 0.4 % (0-4.4); Hematocrit 51.6 % (37.0-47.0); Immature Granulocyte Absolute 0.06 K/mm3 (0.00-0.031); Immature Granulocyte Percent A 0.4 % (0-0.5); Lymphocytes Absolute Auto 2.54 K/mm3 (0.9-3.2); Mean Corpuscular HGB Conc 32.9 g/dl (32-36); Mean Corpuscular Hemoglobin 31.6 pg (26-34); Mean Corpuscular Volume 95.9 fl (80-100); Mean Platelet Volume 10.5 fl (7.4-10.4); Monocytes Absolute Auto 0.7 K/mm3 (0.1-0.6); Monocytes Percent Auto 4.8 % (2.6-8.5); Neutrophils Absolute Auto 11.5 K/mm3 (1.3-6.7); Neutrophils Percent Auto 77.1 % (45.5-73.1); Platelet Count Result 313 k/mm3 (150-375); Red Blood Count 5.38 M/mm3 (4.2-5.4); Red Cell Distribution Width 13.5 % (11.5-14.5); White Blood Count 14.9 K/mm3 (4.5-10.0)
[2024-02-28 15:39] LABS: Lactic Acid Reflex 2.8 mmol/L (0.7-2.0)
[2024-02-28 15:41] LABS: Alanine Aminotransferase 14 U/L (6-35); Albumin Level 3.9 g/dL (3.5-5.1); Alkaline Phosphatase 86 U/L (38-126); Anion Gap 7 mmol/L (4-12); Aspartate Amino Transferase 22 U/L (14-36); Bilirubin,Total 0.6 mg/dL (0.2-1.3); Blood Urea Nitrogen 15 mg/dL (7-17); Calcium 8.7 mg/dL (8.4-10.2); Carbon Dioxide 20 mmol/L (22-30); Chloride 109 mmol/L (98-107); Estimated CRCL calculation 52 ml/min; Estimated Glomerular Filt Rate 50; Glucose 165 mg/dL (65-110); Potassium 3.9 mmol/L (3.4-5.0); Sodium 136 mmol/L (137-145)
[2024-02-28 15:45] VITALS: BP 131/63; PULSE 53; RESP 14; O2SAT 96
--- NOTE | 2024-02-28 16:22 | ED.SYNCOPE ---
HPI - Syncope General Chief Complaint: Syncope Stated Complaint: syncope after plasma donation Time Seen by Provider: 02/28/24 15:38 Source: patient Mode of arrival: EMS Limitations: no limitations History of Present Illness HPI narrative: 63-year-old with a history of seizure disorder, COPD, anxiety disorder was brought in from Plasma center with the complaints of having syncopal episode. Patient states that she donated plasma soon after donation she felt lightheaded passed out. She denied any headache, chest pain or shortness of breath. No history of nausea or vomiting. MD complaint: almost passed out Prodromal symptoms: none Context: other (after donating plasma) Injuries sustained associated with event: none Current symptoms: back to baseline Related Data Home Medications Medication Instructions Recorded Confirmed fluticasone furoate 100 1 ea inhalation DAILY 01/15/20 01/27/24 mcg-vilanterol 25 mcg/dose inhalation powder (Breo Ellipta) Allergies Allergy/AdvReac Type Severity Reaction Status Date / Time gabapentin Allergy Intermediate tingling Verified 02/28/24 15:23 in lips and tongue....sleepiness carbamazepine Allergy Unknown Drowsy Verified 02/28/24 15:23 varenicline Allergy Unknown drowsiness Verified 02/28/24 15:23 and tingling lips Review of Systems Review of Systems: All systems reviewed & are unremarkable except as noted in HPI and below Constitutional: Constitutional: Reports no additional constitutional complaints Eyes: Eyes: Reports no additional eye complaints ENT: Reports system reviewed and no additional complaints, except as documented Cardiovascular: Cardiovascular: Reports no additional cardiovascular complaints Respiratory: Respiratory: Reports no additional respiratory complaints Gastrointestinal: Gastrointestinal: Reports no additional gastrointestinal complaints Musculoskeletal: Musculoskeletal: Reports no additional musculoskeletal complaints Neurologic: Reports system reviewed and no additional complaints, except as documented [facility] Past Medical History Medical History (Updated 02/28/24 @ 17:19 by Corby Lo MD) Benign hypertension with CKD (chronic kidney disease) stage III COPD (chronic obstructive pulmonary disease) HTN (hypertension) 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 Mixed hyperlipidemia Morbid obesity with BMI of 40.0-44.9, adult Osteopenia Seizure disorder Family History Family History Sibling Hypertension Family history of coronary artery disease Mother Patient's mother is Family history of lung cancer Other Family history of cardiovascular disease Family history of seizure disorder Social History Social History (Updated 01/27/24 @ 13:27 by Kelly Mix) Smoking packs per day: 1 Smoking cigarettes per day: 20.0 Years smoked: 20 Smoking pack-years: 20.00 Smoking status: Current every day smoker Tobacco type: cigarettes Second hand tobacco smoke exposure: Yes Alcohol intake: current Alcohol use details: social drinker Substance use: never Substance use type: does not use Do You Feel Safe in your Home?: Yes Lack of Transportation: No Lack of Food: Never True Current Housing: I Have Housing Concerned About Future Housing: No Difficulty Paying Gas/Electric Bills: No Difficulty Paying for Meds: No Currently Unemployed: YES Education: Don't Know Difficulty w/ Childcare or Family Care: No Living arrangements: with friend(s) Occupation/Education: retired Gender identity (if verbalized by the patient): Female Sexual Orientation (if Verbalized by the Patient): Straight or Heterosexual Exam Narrative: GENERAL: Well-appearing, well-nourished, and in no acute distress. HEAD: Normocephalic, atraumatic. EYES: PERRLA and EOMI. ENT: Nares clear, no rhinorrhea or epistaxis. Mucous membranes moist. N
[2024-02-28 17:05] VITALS: BP 131/64; PULSE 57; RESP 12; O2SAT 98
[2024-02-28 18:23] LABS: Reflex Lactic Acid Yes or No Add Lactic
== END 2024-02-28 17:27 | disposition home or self-care (01) ==
PROVIDERS: Physician Assistant; Emergency Provider Family Medicine; PCP Family Medicine
DX: R55 Syncope and collapse (principal); E86.0 Dehydration; J44.9 Chronic obstructive pulmonary disease, unspecified; I12.9 Hypertensive chronic kidney disease with stage 1 through stage 4 chronic kidney disease, or unspecified chronic kidney disease; N18.30 Chronic kidney disease, stage 3 unspecified; E78.2 Mixed hyperlipidemia; G40.909 Epilepsy, unspecified, not intractable, without status epilepticus; E66.01 Morbid (severe) obesity due to excess calories; Z68.41 Body mass index [BMI] 40.0-44.9, adult; M85.80 Other specified disorders of bone density and structure, unspecified site; F17.210 Nicotine dependence, cigarettes, uncomplicated; Z79.899 Other long term (current) drug therapy; R00.1 Bradycardia, unspecified; R94.31 Abnormal electrocardiogram [ECG] [EKG]
CPT/HCPCS: 36415; 80053; 82948; 83605; 85025; 93005; 96360; 96361; 99284; J7030

== ENCOUNTER 2024-03-06 09:18 | Outpatient (CLI) | payer OTHER, SELFPAY ==
--- NOTE | ~2024-03-06 | CT_ITS ---
CT Scan of the Chest without Contrast: Clinical Indication: Lung cancer screening, nicotine dependence Technique: Contiguous sections were acquired throughout the chest without intravenous contrast. Dose reduction technique was used on this scan by utilizing automated exposure control and iterative recon struction technique. The dose-length product (DLP) was 210.52 mGy-cm. COMPARISON: 03/05/2023 Findings: There is no evidence of any significant mediastinal, hilar or axillary lymphadenopathy. Extensive cor onary artery calcifications are present. There is no evidence of pleural or pericardial effusion. There is minimal residual scarring or atelectasis in the anteromedial right upper lobe. No pulmonary nodule evident. Images through the upper abdomen reveal no abnormalities. Impression: Lung RADS 1: Negative. 12 month follow-up screening CT advised. Reviewed, dictated and finalized at [facility]. Impression: Lung RADS 1: Negative. 12 month follow-up screening CT advised.
== END 2024-03-06 09:19 | disposition home or self-care (01) ==
PROVIDERS: PCP Family Medicine; Visit Provider Family Medicine
DX: Z12.2 Encounter for screening for malignant neoplasm of respiratory organs (principal); Z87.891 Personal history of nicotine dependence
CPT/HCPCS: 71271

== ENCOUNTER 2025-05-02 08:29 | Emergency (ER) | payer MEDICARE, SELFPAY ==
--- OUTSIDE RECORDS SUMMARY | 2009-04-06 09:15 | XMS_ITS | Continuity of Care Document ---
Author Organization [facility] Address [address] [place] [address] [address] [place] [address] Phone Care Team Providers Care Grout Machine Tender Name Role Phone Walter OD, Jonathon Unavailable Unavailable Procedures Procedure Date Eye Exam & Treatment Refraction Eye Exam, New Patient Refraction Advance Directives Directive Yes / No Effective Date File Name No Information Encounters Encounter Description Practice Location Reason(s) For Visit Diagnoses Date Provider Providers Copied on Encounter [facility], [address] [place] [address] [address], [place], [place], [id number], tel:[phone] SEC [facility] No Information 9-200 9 Walter OD Jonathon. [address] [facility] , [address], [place], [address], [place]. tel:[phone] [facility], [address] [place] [address] [address], [place], [place], [id number], tel:[phone] [facility] No Information 5-200 8 Walter OD Jonathon. [address] [facility] , [address], [place], [address], [place]. tel:[phone] Family History Family Member Type Diagnosis Age At Onset No Information Payers Payer name Insurance type Covered green party ID Authoriza tion(s) Medicaid [facility] [id number] Social History Type Description Quantity Date Captured Comments Sex Female Smoking Status No Information Chief Complaint And Reason For Visit No Information Reason For Referral Reason For Referral No Information History Of Present Illness Encounter Date Complaint History Of Prese nt Illness No Information Functional Status Date Functional Assessmen t No Information Instructions Date Instruction Additional Infor mation No Information Assessments Type Assessment Date No Information Patient Care Teams Name Effective Dates (start - stop) Status Members No Information
--- OUTSIDE RECORDS SUMMARY | 2009-04-06 09:15 | XMS_ITS | Continuity of Care Document ---
Author Organization [facility] Address [address] [place] [address] [address] [place] [address] Phone Care Team Providers Care Machine Shop Apprentice Name Role Phone Walter OD, Jonathon Unavailable Unavailable Procedures Procedure Date Eye Exam & Treatment Refraction Eye Exam, New Patient Refraction Advance Directives Directive Yes / No Effective Date File Name No Information Encounters Encounter Description Practice Location Reason(s) For Visit Diagnoses Date Provider Providers Copied on Encounter [facility], [address] [place] [address] [address], [place], [place], [id number], tel:[phone] SEC [facility] No Information 9-200 9 Walter OD Jonathon. [address] [facility] , [address], [place], [address], [place]. tel:[phone] [facility], [address] [place] [address] [address], [place], [place], [id number], tel:[phone] [facility] [place] No Information 5-200 8 Walter OD Jonathon. [address] [facility] , [address], [place], [address], [place]. tel:[phone] Family History Family Member Type Diagnosis Age At Onset No Information Payers Payer name Insurance type Covered green party ID Authoriza tion(s) Medicaid [facility] [id number] Social History Type Description Quantity Date Captured [...]
[2025-05-02] VITALS (8 sets, daily range): BP systolic 135–157; BP diastolic 59–102; PULSE 74–91; RESP 16–20; TEMP 36.5–36.6; O2SAT 94–100
--- NOTE | ~2025-05-02 | XR_ITS ---
EXAMINATION: XR chest 2V 05/02/2025 09:12 INDICATION: Seizure PROCEDURE: 2 view chest COMPARISON: 12/03/2015 FINDINGS: The lungs are clear. The cardiomediastinal silhouette is within normal limits. There are no pleural effusions. There is no pneumothorax suspected. IMPRESSION: 1: NO ACUTE CARDIOPULMONARY DISEASE. Reviewed, dictated and finalized at location O.
--- NOTE | ~2025-05-02 | CT_ITS ---
EXAMINATION: CT BRAIN W/O DATE: 05/02/2025 09:12 INDICATION: TECHNIQUE: Computed tomography (CT) of the head was performed without intravenous contrast. The dose-length product was 605.33 mGy-cm. COMPARISON: No prior studies for comparison. FINDINGS: Normal brain parenchymal volume for age. Normal norman-white differentiation. No acute intracranial hemorrhage, infarction, mass or mass effect. Small chronic bilateral lacunar infarctions of the caudate nucleus. There is intracranial atherosclerosis. Paranasal sinuses and mastoids are pneumatized. No ventriculomegaly or midline shift. Midline sagittal images demonstrate a normal corpus callosum, craniovertebral junction and sella turcica. Basilar cisterns are patent. Paranasal sinuses and mastoids are pneumatized. No depressed skull fractures. IMPRESSION: 1. No acute intracranial abnormality. 2: Small chronic bilateral lacunar infarctions of the caudate nucleus. Reviewed, dictated and finalized at location O.
--- OUTSIDE RECORDS SUMMARY | 2025-05-02 08:32 | XMS_ITS | Clinical Summary ---
Author Organization [facility] Address [facility] [place] [address] Care Team Providers Care Insulation Technician Name Role Phone Gabriel Diego MD Primary Care Provider [phone] Allergies Active Allergy Reactions Criticality Noted Date Comments Carbamazepine Hives,Swelling Medium 06/15/2020 Gabapentin Swelling Medium 06/15/2020 Medications lisinopril 40 MG tablet 1 Active busPIRone 5 MG tablet 1 Active rOPINIRole 1 MG tablet 1 Active sertraline 100 MG tablet 1 Active albuterol (2.5 MG/3ML) 0.083% nebulizer solution INHALE 3 ML BY MOUTH EVERY 4-6 HOURS NEEDED FOR SHORTNESS OF BREATH OR WHEEZING 2 Active HYDROcodone-acet aminophen 5-325 MG tablet Take 1 tablet by mouth every 6 (six) hours as needed. 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 60 tablet 11 3 Active LORazepam (ATIVAN) 0.5 MG tablet Take 1 tablet (0.5 mg total) by mouth 2 (two) times daily. 3 Active ubrogepant (UBRELVY) 100 MG tabletIndication s:Migraine without aura, not intractable, without status migrainosus Take 1 tablet (100 mg total) by mouth 2 (two) times daily as needed for Migraine. Max of 2 tablets (200 mg) in 24 hours 16 tablet 11 3 Active meloxicam (MOBIC) 15 MG tablet Take 1 tablet (15 mg total) by mouth daily. 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 60 tablet 11 5 Active Active Problems Problem Noted Date Diagnosed Date Seizure ([facility]) 06/15/2020 Overview (10/24/2021): Last Assessment & Plan: Patient has had multiple episodes of seizures but she is currently well controlled and maintained on her current medication regimen. PAD (peripheral artery disease) 06/15/2020 Overview (10/24/2021): Last Assessment & Plan: Patient has peripheral arterial disease is well controlled at this time and she is able to walk 5 blocks. This has been unchanged since when she previously came to see me. She is trying to cut back on smoking at this time. I told her that that along with walking will be the best thing for her and her arterial disease. She is concerned given knee stroke risk in her family however her carotid arteries are 1-15% stenosis bilaterally. She has not had any stroke or TIA symptoms in she has been well controlled with her seizure disorder on her medications. I will have her follow up with me as needed. Essential hypertension 06/15/2020 Overview (10/24/2021): Last Assessment & Plan: Well controlled on medications at this time. Claudication 06/15/2020 Overview (10/24/2021): Last Assessment & Plan: Claudication symptoms are at 5 blocks. I told her to continue walking as much as she can and when she starts having pain in her calves to continue walking for a little further before sitting down. Immunizations Immunization Administration Dates Next Due Influenza (Generic) 07/21/2013 Pneumococcal (Pneumovax 23) 09/22/2019 Pneumococcal (Prevnar 13) 08/01/2021 Social History Tobacco Use Types Packs/Day Years Used Date Smoking Tobacco: Every Day Cigarettes 0.5 20 Smokeless Tobacco: Never Tobacco Cessation:Ready to Q uit: Not Asked; Counseling Given: Yes Alcohol Use Standard Drinks/Week Comments Not Currently 0 (1 standard drink = 0.6 oz pur e alcohol) PHQ-2 Answer Date Recorded Patient Health Questionnaire-2 Score 3 09/29/2024 Comments No Sex and Gender Information Value Date Recorded Sex Assigned at Female 11/13/2024 4:23 PM FISHING TACKLE REPAIRER Legal Sex Female 7:10 PM CDT Gender Identity Not on file Sexual Orientation Not on file Last Filed Vital Signs Vital Sign Reading Time Taken Comments Blood Pressure 155/75 11/13/2024 6:49 PM FISHING TACKLE REPAIRER Pulse 68 11/13/2024 6:35 PM FISHING TACKLE REPAIRER Temperature 36.7 C (98 F) 11/13/2024 4:16 PM FISHING TACKLE REPAIRER Respiratory Rate 20 11/13/2024 6:35 PM FISHING TACKLE REPAIRER Oxygen Saturation 94% 11/13/2024 6:35 PM FISHING TACKLE REPAIRER Inhaled Oxygen Concentration - - Weight 99.4 kg (219 lb 2.2 oz) 11/13/2024 4:16 P M FISHING TACKLE REPAIRER Height 154.9 cm (5' 1) 11/13/2024 4:16 PM FISHING TACKLE REPAIRER Body Mass Index 41.41 11/13/2024 4:16 PM FISHING TACKLE REPAIRER Plan of Treatment Health Maintenance Due Date Last Done Comments ASCVD LDL 1961 ASCVD Statin 1961 Colorectal Cancer Screening Colonoscopy (10 Years) 1961 Annual Physical 1964 Hepatitis C 1979 DTaP, Tdap and Td Vaccines ( 1 - Tdap) 1980 Mammogram Screening 2001 Zoster Vaccines (1 of 2) 2011 RSV Immunization or 60+ Years (1 - Risk 60-74 years 1-dose series) 2021 COVID-19 Vaccine (3 - 2023-2 5 season) 2024 07/18/2021, 11/15/2020 Pneumococcal Vaccine: 50+ Years (3 of 3 - PCV20 or PCV21) 08/01/2026 08/01/2021, 09/22/2019 PHQ-2 (Physician [place]) Completed 09/29/2024 Meningococcal B Vaccine Aged Out No l onger eligible based on patient's age to complete this topic Meningococcal Vaccine Aged Out No mary kate flor eligible based on patient's age to complete this topic RSV Immunizations Under 20 Months Aged Out No longer eligible b ased on patient's age to complete this topic Insurance [employer] Care Teams Insulation Technician Relationship Specialty Start Date End Date Gabriel Diego MD [address] [place] [address] PCP - General FAMILY PRACTICE 04/23/22
--- OUTSIDE RECORDS SUMMARY | 2025-05-02 08:32 | XMS_ITS | Clinical Summary ---
Author Organization [facility] Address [address] [place] [id number] Care Team Providers Care Guyline Operator Name Role Phone Gabriel Diego MD Primary Care Provider Gabriel Diego MD Unavailable [phone] Allergies Active Allergy Reactions Criticality Noted Date Comments Gabapentin Swelling Medium 06/15/2020 Carbamazepine Hives,Swelling Medium 06/15/2020 Medications levETIRAcetam (KEPPRA) 500 mg tablet Take by mouth 2 (two) times a day Active lisinopriL (PRINIVIL,ZESTRI L) 40 mg tablet Take 40 mg by mouth daily Active rOPINIRole (REQUIP) 1 mg tablet Take 1 mg by mouth 3 (three) times a day Active sertraline (ZOLOFT) 100 mg tablet Take 100 mg by mouth daily Active busPIRone (BUSPAR) 5 mg tablet Take 5 mg by mouth 3 (three) times a day Active Active Problems Problem Noted Date Diagnosed Date PAD (peripheral artery disease) 06/15/2020 Assessment & Plan (09/23/2020 11:02 AM SUPERVISOR MIRROR FABRICATION): Patient has peripheral arterial disease is well [...] her follow up with me as needed. Assessment & Plan (06/15/2020 2:33 PM CDT): Patient has peripheral arterial disease and can walk about 5 blocks before getting claudication symptoms. Her ABIs at this time were normal even though her right TBI was lower. She has no wounds on her foot and she says that any issue she has heal up well. Plan will be to have her follow back up in 3 months with a repeat MIRANDA and arterial duplex. At that time I will also have her get carotid duplex given her family history of cerebrovascular disease. Claudication 06/15/2020 Assessment & Plan (09/23/2020 11:02 AM SUPERVISOR MIRROR FABRICATION): Claudication symptoms are at 5 blocks. I told her to continue walking as much as she can and when she starts having pain in her calves to continue walking for a little further before sitting down. Assessment & Plan (06/15/2020 2:33 PM CDT): She gets claudication symptoms at 5 blocks and this does not limit her lifestyle at this time. She is a pack-a-day smoker and IA told her that the best thing she could do for her claudication symptoms would be to stop smoking and continue to walk. Essential hypertension 06/15/2020 Assessment & Plan (09/23/2020 11:11 AM SUPERVISOR MIRROR FABRICATION): Well controlled on medications at this time. Assessment & Plan (06/15/2020 2:34 PM CDT): Followed by her PCP and on medications at this time. Seizure 06/15/2020 Assessment & Plan (09/23/2020 11:11 AM SUPERVISOR MIRROR FABRICATION): Patient has had multiple episodes of seizures but she is currently well controlled and maintained on her current medication regimen. Assessment & Plan (06/15/2020 2:34 PM CDT): Followed by her PCP and neurologist and on seizure medications at this time. Resolved Problems Problem Noted Date Diagnosed Date Resolved Date Seizure 06/15/2020 06/15/2020 Hypertension 06/15/2020 06/15/2020 Surgical History Surgery Date Site/Laterality Comments NECK SURGERY HYSTERECTOMY DENTAL SURGERY CHOLECYSTECTOMY Medical History Medical History Date Comments Seizure (HCC) Hypertension Family History Medical History Relation Name Comments Heart disease Brother No Known Problems Father Brain Aneurysm Mother Heart disease Sister Relation Name Status Comments Brother Father Mother Sister Alive Social History Tobacco Use Types Packs/Day Years Used Date Smoking Tobacco: Every Day Cigarettes Smokeless Tobacco: Never Alcohol Use Standard Drinks/Week Comments Not Currently 0 (1 standard drink = 0.6 oz pur e alcohol) Personal Safety Answer Date Recorded Getting School Help Needed Not on file 11/21 Comments Unknown Sex and Gender Information Value Date Recorded Sex Assigned at Not on file Legal Sex Female 8:26 AM SUPERVISOR MIRROR FABRICATION Gender Identity Not on file Sexual Orientation Not on file Obstetrics History Last Filed Vital Signs Vital Sign Reading Time Taken Comments Blood Pressure 132/82 09/21/2020 1:10 PM SUPERVISOR MIRROR FABRICATION Pulse 69 09/21/2020 1:10 PM SUPERVISOR MIRROR FABRICATION Temperature - - Respiratory Rate - - Oxygen Saturation - - Inhaled Oxygen Concentration - - Weight 97.1 kg (214 lb) 09/21/2020 1:10 PM SUPERVISOR MIRROR FABRICATION Height 154.9 cm (5' 1) 09/21/2020 1:10 PM SUPERVISOR MIRROR FABRICATION Body Mass Index 40.43 09/21/2020 1:10 PM SUPERVISOR MIRROR FABRICATION Plan of Treatment Health Maintenance Due Date Last Done Comments Breast Cancer Screening-Mammogram 1961 Colon Cancer Screening-Colonoscopy 1961 Depression Screening 1961 Hepatitis C Screening 1961 DTaP/Tdap/Td Vaccine (1 - Tdap) 1972 Hepatitis B Screening 1979 Regular Well Visit/Exam 18-64 1979 Zoster Vaccine (1 of 2) 2011 Influenza Vaccine (#1) 2025 07/21/2013 Pneumococcal vaccine <65 (3 of 3 - PCV20 or PCV21) 08/01/2026 08/01/2021, 09/22/2019 Insurance [facility] Care Teams Guyline Operator Relationship Specialty Start Date End Date Gabriel Diego MD [address] [facility] [address] [place] [address] PCP - General 09/13/20 Gabriel Diego MD [address] [place] [address] Family Medicine 09/13/20
--- OUTSIDE RECORDS SUMMARY | 2025-05-02 08:32 | XMS_ITS | Clinical Summary ---
Author Organization [email or web address] Address [address] [place] [address] Care Team Providers Care Frame Repairer Name Role Phone Unavailable Primary Care Provider Unavailabl e Source Comments [email or web address],non-owned Affiliates and Associated Physician Practices is amultiple site organization consisting of ambulatory clinics and hospital sitesin [place], [place], [place] and [place]. This disclosure is being madepursuant to the Care Everywhere program and may not contain all information available regarding this patient. Last updated 18.[email or web address] Allergies Active Allergy Reactions Criticality Noted Date Comments Gabapentin Anaphylaxis High 02/18/2025 Carbamazepine Anaphylaxis High 02/18/2025 Medications * This document contains information received from the source organization and may not represent a complete record from that organization. * Be aware that medications may not be up to date on this document. Alwaysverify current medications with the patient. ALENDRONATE SODIUM PO Take 70 mg by mouth every 7 days Last taken 02/04/25 5 Active meloxicam (Mobic) 15 MG tabletIndicatio ns:Osteoarthrit is Take 1 (one) tablet by mouth once daily 15 tablet 1 5 Active busPIRone (Buspar) 10 MG tabletIndicatio ns:Anxiety Disorder,Major Depressive Disorder Take 1 (one) tablet by mouth 3 times daily 45 tablet 1 03/01/2025 3:10 PM CDT 5 Active albuterol HFA (Proventil; Ventolin; Proair) 108 (90 Base) MCG/ACT inhalerIndicati ons:Chronic Obstructive Pulmonary Disease Inhale 2 (two) puffs by mouth every 6 hours as needed for Shortness of Breath 18 g 03/01/2025 3:10 PM CDT 5 Active levETIRAcetam (Keppra) 1000 MG tabletIndicatio ns:Seizure Take 1 (one) tablet by mouth 2 times daily 30 tablet 1 03/01/2025 3:10 PM CDT 5 Active mirtazapine (Remeron) 15 MG tabletIndicatio ns:Major Depressive Disorder Take 1 (one) tablet by mouth at bedtime 15 tablet 1 03/01/2025 3:10 PM CDT 5 Active rOPINIRole (Requip) 1 MG tabletIndicatio ns:Restless Leg Syndrome Take 1 (one) tablet by mouth 3 times daily 45 tablet 1 5 Active amLODIPine (Norvasc) 10 MG tabletIndicatio ns:Hypertension Take 1 (one) tablet by mouth once daily Reasons: High Blood Pressure 15 tablet 1 03/01/2025 3:10 PM CDT 5 Active docusate sodium (Colace) 100 MG capsuleIndicati ons:Constipatio n Take 1 (one) capsule by mouth 2 times daily as needed for Constipation 30 capsule 1 03/01/2025 3:10 PM CDT 5 Active famotidine (Pepcid) 20 MG tabletIndicatio ns:Gastroesopha geal Reflux Disease Take 1 (one) tablet by mouth 2 times daily 30 tablet 1 03/01/2025 3:10 PM CDT 5 Active Active Problems Problem Noted Date Diagnosed Date Cough, unspecified type 02/26/2025 Seizure 02/26/2025 Current episode of major dep ressive disorder without prior episode, unspecified depression episode severity 02/18/2025 Encounters * This document contains information received from the source organization and may not represent a complete record from that organization. Date Type Department Care Team Description 02/26/2025 Travel 02/17/2025 5:28 PM CDT - 02/18/2025 12:56 AM CDT Emergency [facility] [address] [place] [address] Isiah Lucas MD Lorber, Steven A, MD Suicidal ideation (Primary Dx) Discharge Disposition: Inpatient Hospital 02/17/2025 Travel from Last 3 Months Family History Medical History Relation Name Comments Seizures Maternal Uncle Relation Name Status Comments Maternal Uncle Alive Social History Tobacco Use Types Packs/Day Years Used Date Smoking Tobacco: Every Day Cigarettes 0.5 20 Smokeless Tobacco: Never Tobacco Cessation:Ready to Q uit: No; Counseling Given: Yes Alcohol Use Standard Drinks/Week Comments Never 0 (1 standard drink = 0.6 oz pur e alcohol) AUDIT-C Answer Date Recorded Q1: How often do you have a drink containing alcohol? Never 02/26/2025 Q2: How many drinks containi ng alcohol do you have on a typical day when you are drinking? Patient does not drink Q3: How often do you have si x or more drinks on one occasion? Never 02/26/2025 Overall Financial Resource Strain (CARDIA) Answe r Date Recorded How hard is it for you to pa y for the very basics like food, housing, medical care, and heating? Not very hard 02/27/2025 [facility] - Occupational Stress Questionnaire Answer Date Recorded Do you feel stress - tense, restless, nervous, or anxious, or unable to sleep at night because your mind is troubled all the time - these days? Very much 02/27/2025 Hunger Vital Sign Answer Date Recorded Within the past 12 months, y ou worried that your food would run out before you got the money to buy more. Often true 02/28/20 25 Within the past 12 months, t he food you bought just didn't last and you didn't have money to get more. Often true 02/27/2025 PRAPARE - Transportation Answer Date Re corded In the past 12 months, has l ack of transportation kept you from medical appointments or from getting medications? No 02/08 In the past 12 months, has l ack of transportation kept you from meetings, work, or from getting things needed for daily living? No 02/27/2025 Housing Stability Vital Sign Answer Tom e Recorded In the last 12 months, was t here a time when you were not able to pay the mortgage or rent on time? Yes 02/27/2025 In the past 12 months, how m any times have you moved where you were living? 1 02/27/2025 At any time in the past 12 m [facility], were you homeless or living in a [place] facility (including now)? Yes 02/27/2025 Comments No Sex and Gender Information Value Date Recorded Sex Assigned at Male 02/26/2025 9:24 PM CDT Legal Sex Female 5:06 PM CDT Gender Identity Not on file Sexual Orientation Not on file Last Filed Vital Signs Vital Sign Reading Time Taken Comments Blood Pressure 140/66 03/02/2025 10:07 AM CDT Pulse 78 03/02/2025 10:07 AM CDT Temperature 36.2 C (97.1 F) 03/02/2025 10:07 AM CDT Respiratory Rate 16 03/02/2025 10:07 AM CDT Oxygen Saturation 99% 03/02/2025 10:07 AM CDT Inhaled Oxygen Concentration - - Weight 96.6 kg (213 lb) 03/01/2025 9:51 PM CDT Height 159.9 cm (5' 2.95) 02/27/2025 2:30 AM CD T Body Mass Index 37.79 02/27/2025 2:30 AM CDT Plan of Treatment Health Maintenance Due Date Last Done Comments COLOGUARD (AGES 45-75) - COL ON CA SCREENING 1961 COLON MONITORING 1961 COLONOSCOPY - COLON CA SCREENING 1961 CT COLONOGRAPHY - COLON CA SCREENING 1961 Colorectal Cancer Screening 1961 FIT - COLON CA SCREENING 1961 FLEX SIG - COLON CA SCREENING 1961 LIPID TESTING 1961 HIV SCREENING 1976 HEPATITIS C SCREENING 05/10/1979 DTAP/TDAP/TD VACCINES (1 - Tdap) 1980 PNEUMOCOCCAL VACCINE 50+ (1 of 2 - PCV) 1980 ZOSTER VACCINE (1 of 2) 2011 COVID-19 VACCINE ( - 2023-2 5 season) 2024 DEPRESSION SCREENING 09/09/2024 MEDICARE AWV CALENDAR YEAR 2024 INFLUENZA VACCINE (#1) 2025 07/21/2013 Respiratory Syncytial Virus (RSV) Vaccine Pt: or over 60 yrs (1 - 1-dose 75+ series) 2036 HEPATITIS B VACCINE Aged Out No longe r eligible based on patient's age to complete this topic HIB VACCINE Aged Out No longer eligi ble based on patient's age to complete this topic HPV VACCINE Aged Out No longer eligi ble based on patient's age to complete this topic MENINGOCOCCAL (Group B) VACC INE SHARED DECISION-MAKING Aged Out No longer eligibl e based on patient's age to complete this topic MENINGOCOCCAL GROUPS A/C/Y/W VACCINE Aged Out No longer eligible b ased on patient's age to complete this topic Procedures Procedure Name Priority Date/Time Associated Diagnosis Comments CARDIAC EKG ORDER 03/01/2025 4:5 7 PM CDT TROPONIN-I HIGH SENSITIVE REFLEX 1HOUR Timed 02/26/2025 11:44 PM CDT SARS-COV-2 (COVID-19) RAPID STAT 02/26/2025 11:05 PM CDT EKG 12-LEAD STAT 02/26/2025 10:52 PM CDT Seizure (HCC) TROPONIN-I HIGH SENSITIVE BASELINE + 1HR STAT 02/26/2025 10:38 PM CDT LEVETIRACETAM LEVEL STAT 02/26/2025 1 0:38 PM CDT COMPREHENSIVE METABOLIC PANEL STAT 02/26/2025 10:38 PM CDT CBC W AUTO DIFFERENTIAL STAT 02/26/2025 10:38 PM CDT XR CHEST 1VW PORTABLE STAT 02/26/2025 9:34 PM CDT Cough, unspecified type GLUCOSE - POINT OF CARE Routine 02/23/2025 11:35 AM CDT VITAMIN B12 AM Draw 02/23/2025 6:46 AM CDT BASIC METABOLIC PANEL (CALCIUM TOTAL) AM Draw 02/23/2025 6:46 AM CDT HEMOGLOBIN A1C Routine 02/23/2025 6:46 AM CDT TSH REFLEX FREE T4 Routine 02/23/2025 6: 46 AM CDT ALCOHOL ETHYL BLOOD STAT 02/17/2025 5 :38 PM CDT CBC W AUTO DIFFERENTIAL STAT 02/17/2025 5:38 PM CDT COMPREHENSIVE METABOLIC PANEL STAT 02/17/2025 5:38 PM CDT from Last 3 Months Results * CARDIAC EKG ORDER (03/01/2025 4:57 PM CDT) Narrative 03/01/2025 4:57 PM CDT Ordered by an unspecified provider. us Scanned Document CARDIAC SERVICES ORDERABLES Fin al Result * TROPONIN-I HIGH SENSITIVE REFLEX 1HOUR (02/26/2025 11:44 PM CDT) [facility] Troponin I High Sensitive 4 <=14 ng/L 02/27/2025 12:21 AM CDT [facility] Delta Troponin I HS <0 <6 ng/L 02/27/2025 12:21 AM CDT [facility] Blood BLOOD SPECIMEN / Unknown Venipuncture / Unknown 02/26/2025 11:44 PM CDT 02/26/2025 11:49 PM CDT us Chelle Perez MD LAB - CHEMISTRY ORDERABLES Final Result [facility] [address] [place] [address] * SARS-COV-2 (COVID-19) RAPID (02/26/2025 11:05 PM CDT) [facility] COVID-19 PCR Not detected Not detected 02/27/20 11:40 PM CDT [facility] Microbiology SPECIMEN FROM NASOPHARYNGEAL STRUCTURE / Unknown Collection / Unknown 02/26/2025 11:05 PM CDT 02/26/2025 11:08 PM CDT Narrative [facility] - 02/26/2025 11:40 PM CDT The Cepheid Xpert Xpress SARS-COV-2 has been authorized by the Food and Drug Administration (FDA) under an Emergency Use Authorization (EUA). This test has been validated in accordance with the FDA's guidance document Policy for Diagnostic Testing in Laboratories Certified to perform High Complexity Testing under CLIA prior to Emergency Use Authorization for Coronavirus Disease-2019 during the Public Health Emergency issued on November 07, 2019. FDA independent review of this validation is pending. This test is only authorized for the duration of the time the declaration that circumstances exist justifying the authorization of emergency use of in vitro diagnostic tests for detection of SARS-COV-2 virus and/or diagnosis of COVID-19 infection under 564(b) (1) of the Act. 21 U.S.C. 360bbb-3 (b) (1), unless the authorization is terminated or revoked sooner. Fact Sheets for this EUA assay are available upon request. us Chelle Perez MD LAB - MICROBIOLOGY ORDERABLES Fi nal Result [facility] [address] [place] [address] * EKG 12-LEAD (02/26/2025 10:52 PM CDT) Ventricular Rate 61 BPM [facility] Atrial Rate 61 BPM [facility] P-R Interval 144 ms [facility] QRS Duration ms 78 ms [facility] Q-T Interval ms 458 ms [facility] QTC Calculation (Bezet) 461 ms [facility] Calculated P [place] 71 degrees [facility] Calculated R [place] 16 degrees [facility] Calculated T [place] 52 degrees [facility] Interpretation EKG NORMAL SINUS RHYTHM NORMAL ECG NO PREVIOUS ECGS AVAILABLE Confirmed by MD JIMENEZ PAUL ([id number]) on 02/28/2025 1:35:29 PM [facility] 02/26/2025 10:5 2 PM CDT 02/28/2025 1:35 PM CDT Chelle Perez MD ECG ORDERABLES Edited Result - Final Performing Organization Address [facility] Phone Number [facility] M[facility] * TROPONIN-I HIGH SENSITIVE BASELINE + 1HR (02/26/2025 10:38 PM CDT) [facility] Troponin I High Sensitive 5 <=14 ng/L 02/26/2025 11:09 PM CDT [facility] Blood BLOOD SPECIMEN / Unknown Venipuncture / Unknown 02/26/2025 10:38 PM CDT 02/26/2025 10:46 PM CDT Chelle Perez MD LAB - CHEMISTRY ORDERABLES Final Result Performing Organization Address [facility] Phone Number [address] [phone] * LEVETIRACETAM LEVEL (02/26/2025 10:38 PM CDT) [facility] Levetiracetam 13.83 10 - 40 ug/mL 02/26/2025 11:08 PM CDT [facility] Blood BLOOD SPECIMEN / Unknown Venipuncture / Unknown 02/26/2025 10:38 PM CDT 02/26/2025 10:46 PM CDT Chelle Perez MD LAB - THERAPEUTIC DRUG MONITORIN G ORDERABLES Final Result Performing Organization Address [facility] de Phone Number [facility] [address] [place] [address] * CBC W AUTO DIFFERENTIAL (02/26/2025 10:38 PM CDT) Only the most recent of2 resultswithin the time period is included. [facility] WBC 7.4 4.0 - 10.7 x10E9/L 02/26/2025 10:49 PM CDT [facility] RBC Count 4.75 3.90 - 5.20 x10E12/L 02/26/2025 10:49 PM CDT [facility] Hemoglobin 14.8 11.9 - 15.8 g/dL 02/26/2025 10:49 PM CDT [facility] Hematocrit 45.2 34.8 - 46.1 % 02/26/2025 10:49 PM CDT [facility] MCV 95.2 80.0 - 98.0 fL 02/26/2025 10:49 PM CDT [facility] MCH 31.2 26.7 - 33.6 pg 02/26/2025 10:49 PM CDT [facility] MCHC 32.7 31.7 - 36.3 g/dL 02/26/2025 10:49 PM CDT [facility] RDW-CV 13.1 11.3 - 14.8 % 02/26/2025 10:49 PM CDT [facility] Platelet Count 257 150 - 420 x10E9/L 02/26/2025 10:49 PM CDT [facility] MPV 9.3 7.8 - 11.4 fL 02/26/2025 10:49 PM CDT [facility] Neutrophil % 52.1 41.0 - 74.0 % 02/26/2025 10:49 PM CDT [facility] Lymphocyte % 37.1 17.0 - 47.0 % 02/26/2025 10:49 PM CDT [facility] Monocyte % 7.8 3.0 - 11.0 % 02/26/2025 10:49 PM CDT [facility] Eosinophil % 2.4 0.0 - 7.0 % 02/26/2025 10:49 PM CDT [facility] Basophil % 0.3 0.0 - 1.6 % 02/26/2025 10:49 PM CDT [facility] Immature Granulocytes % 0.3 0.0 - 1.0 % 02/26/2025 10:49 PM CDT [facility] Neutrophil Absolute 3.86 1.60 - 7.50 x10E9/L 02/26/2025 10:49 PM CDT [facility] Lymphocyte Absolute 2.75 1.00 - 4.40 x10E9/L 02/26/2025 10:49 PM CDT [facility] Monocyte Absolute 0.58 0.15 - 1.00 x10E9/L 02/26/2025 10:49 PM CDT [facility] Eosinophil Absolute 0.18 0.00 - 0.60 x10E9/L 02/26/2025 10:49 PM CDT [facility] Basophil Absolute 0.02 0.00 - 0.13 x10E9/L 02/26/2025 10:49 PM CDT [facility] Blood BLOOD SPECIMEN / Unknown Venipuncture / Unknown 02/26/2025 10:38 PM CDT 02/26/2025 10:46 PM CDT us Chelle Perez MD LAB - HEMATOLOGY ORDERABLES Monica willson Result [facility] [address] [place] [address] * (ABNORMAL) COMPREHENSIVE METABOLIC PANEL (02/26/2025 10:38 PM CDT) Only the most recent of2 resultswithin the time period is included. Glucose 102(H) 70 - 99 mg/dL 02/26/2025 11:[facility] Sodium 142 136 - 145 mmol/L 02/26/2025 11:06 PM CDT [facility] Potassium 4.5 3.5 - 5.1 mmol/L 02/26/2025 11:06 PM CDT [facility] Chloride 107 98 - 107 mmol/L 02/26/2025 11:06 PM CDT [facility] CO2 26 22 - 29 mmol/L 02/26/2025 11:06 PM [facility] Calcium 9.4 8.4 - 10.4 mg/dL 02/26/2025 11:06 PM [facility] Anion Gap 9 6 - 16 mmol/L 02/26/2025 11:06 PM CDT [facility] BUN 26 7 - 26 mg/dL 02/26/2025 11:06 PM CDT [facility] Creatinine 1.18(H) 0.57 - 1.11 mg/dL 02/26/2025 11:06 PM T [facility] Alkaline Phosphatase 93 40 - 150 U/L 02/26/2025 11:06 PM CDT [facility] ALT 21 6 - 57 U/L 02/26/2025 11:06 PM CDT [facility] AST 24 10 - 48 U/L 02/26/2025 11:06 PM CDT [facility] Protein Total 6.7 6.4 - 8.3 gm/dL 02/26/2025 11:06 PM CDT [facility] Albumin 3.5 3.1 - 4.5 gm/dL 02/26/2025 11:06 PM CDT [facility] Bilirubin Total 0.2 0.2 - 1.2 mg/dL 02/26/2025 11:06 PM CDT [facility] eGFR by CKD-EPI 52(L) >=90 mL/min/1.7 3 m2 02/26/2025 11:06 PM CDT [facility] Blood BLOOD SPECIMEN / Unknown Venipuncture / Unknown 02/26/2025 10:38 PM CDT 02/26/2025 10:46 PM CDT us Chelle Perez MD LAB - CHEMISTRY ORDERABLES Final Result Performing Organization Address City/State/[facility] Co de Phone Number [facility] [address] [place] [address] * XR CHEST 1VW PORTABLE (02/26/2025 9:34 PM CDT) Anatomical Region Laterality Modality Chest Radiographic Diana ging 02/27/2025 10:0 5 AM CDT Narrative 02/27/2025 10:05 AM CDT PROCEDURE: XR CHEST 1VW PORTABLE, DATE/TIME OF EXAM: 02/26/2025 9:35 PM, LOCATION [facility] INDICATION: R05.9: Cough, unspecified type Chest portable one view HISTORY: Cough The heart size and the mediastinal contours are normal. The pulmonary vascularity and froy normal. The lungs are clear. > Interpreting Provider: Talat Crawley MD on 02/27/2025 10:05 AM Procedure Note Talat Crawley MD - 02/27/2025 PROCEDURE: XR CHEST 1VW PORTABLE, DATE/TIME OF EXAM: 02/26/2025 9:35PM, LOCATION [facility] INDICATION: R05.9: Cough, unspecified type Chest portable one view HISTORY: Cough The heart size and the mediastinal contours are normal. The pulmonary vascularity and froy normal. The lungs are clear. > Interpreting Provider: Talat Crawley MD on 02/27/2025 10:05 AM Chelle Perez MD DIAGNOSTIC IMAGING ORDERABLES Fi nal Result * (ABNORMAL) GLUCOSE - POINT OF CARE (02/23/2025 11:35 AM CDT) [facility] Glucose WB/POC 108(H) 70 - 99 mg/dL 02/23/2025 11:50 AM CDT [facility] Specimen Type Arterial/C apillary 02/23/2025 11:50 AM CDT [facility] Blood BLOOD SPECIMEN / Unknown 02/23/2025 11:35 AM CDT 02/23/2025 11:50 AM CDT Silvio Dewey MD LAB - POINT OF CARE ORDERABL ES Final Result Performing Organization Address City/[facility]/ZIP Co de Phone Number [facility] [address] [place] [address] * TSH REFLEX FREE T4 (02/23/2025 6:46 AM CDT) [facility] TSH 0.936 0.350 - 4.940 uIU/mL 02/23/2025 7:27 AM CDT [facility] Blood BLOOD SPECIMEN / Unknown Venipuncture / Unknown 02/23/2025 6:46 AM CDT 02/23/2025 6:47 AM CDT Jami Johnson MD LAB - CHEMISTRY ORDERABLES Final Result [facility] [address] [place] [address] * HEMOGLOBIN A1C (02/23/2025 6:46 AM CDT) [facility] Hemoglobin A1c 5.3 <5.7 % 02/23/2025 7:04 AM CDT [facility] Estimated Average Glucose 105 mg/dL 02/23/2025 7:04 AM CDT [facility] Blood BLOOD SPECIMEN / Unknown Venipuncture / Unknown 02/23/2025 6:46 AM CDT 02/23/2025 6:46 AM CDT [facility] - 02/23/2025 7:04 AM CDT HbA1c Interpretation: Normal: < 5.7% Pre-diabetes: 5.7-6.4% Diabetes: Equal to or greater than 6.5% Test results diagnostic of diabetes should be repeated for confirmation. Treatment target values recommended by ADA and other clinical organizations should be used to evaluate metabolic control in patients. This test should not replace glucose testing for patients with Type 1 diabetes, pediatric patients, or women. Falsely low HbA1c results may be observed in patients with clinical conditions that shorten erythrocyte life span or decrease mean erythrocyte age such as the presence of unstable hemoglobin variants, elevated hemoglobin F level or other causes of hemolytic anemia. HbA1c may not accurately reflect glycemic control when clinical conditions that affect erythrocyte survival are present. Severe Iron deficiency anemia may yield falsely high results. Hemoglobin A1c assay should not be used to diagnose or monitor diabetes in patients with malignancy, recent blood transfusion, chronic kidney or liver disease. This method may yield falsely low results when hemoglobin (HbF) exceeds 5% in the specimen. The Jha Alinity assay for the measurement of HbA1c is a National Glycohemoglobin Standardization Program (NGSP) certified method. Jami Johnson MD LAB - CHEMISTRY ORDERABLES Final Result [facility] [address] [place] [address] * (ABNORMAL) BASIC METABOLIC PANEL (CALCIUM TOTAL) (02/23/2025 6:46 AM CDT) [facility] Glucose 87 70 - 99 mg/dL 02/23/2025 7:07 AM CDT [facility] Sodium 140 136 - 145 mmol/L 02/23/2025 7:07 AM CDT [facility] Potassium 4.2 3.5 - 5.1 mmol/L 02/23/2025 7:07 AM CDT [facility] Chloride 109(H) 98 - 107 mmol/L 02/23/2025 7:07 AM CDT [facility] CO2 24 22 - 29 mmol/L 02/23/2025 7:07 AM CDT [facility] Calcium 8.9 8.4 - 10.4 mg/dL 02/23/2025 7:07 AM T [facility] Anion Gap 7 6 - 16 mmol/L 02/23/2025 7:07 AM CDT [facility] BUN 20 7 - 26 mg/dL 02/23/2025 7:07 AM CDT [facility] Creatinine 0.87 0.57 - 1.11 mg/dL 02/23/2025 7:07 AM T [facility] eGFR by CKD-EPI 75(L) >=90 mL/min/1.7 3 m2 02/23/2025 7:07 AM CDT [facility] Blood BLOOD SPECIMEN / Unknown Venipuncture / Unknown 02/23/2025 6:46 AM CDT 02/23/2025 6:47 AM CDT Jami Johnson MD LAB - CHEMISTRY ORDERABLES Final Result Performing Organization Address City/[facility]/ZIP Co de Phone Number [facility] [address] [place] [id number] * VITAMIN B12 (02/23/2025 6:46 AM CDT) Vitamin B12 327 213 - 816 pg/mL 02/23/2025 9:40 AM [facility] Blood BLOOD SPECIMEN / Unknown Venipuncture / Unknown 02/23/2025 6:46 AM CDT 02/23/2025 6:47 AM CDT Jami Johnson MD LAB - CHEMISTRY ORDERABLES Final Result [facility] [address] [place] [id number] * ALCOHOL ETHYL BLOOD (02/17/2025 5:38 PM CDT) Ethanol (mg/dL) <10 <10 mg/dL 6:11 PM CDT [facility] Ethanol Calculated (g/dL) <0.010 <=0.010 g/dL 02/17/2025 6:11 PM CDT [facility] Blood BLOOD SPECIMEN / Unknown Venipuncture / Unknown 02/17/2025 5:38 PM CDT 02/17/2025 5:58 PM CDT Narrative [facility] - 02/17/2025 6:11 PM CDT Ethanol Interp <10: None Detected. Depression of FIELD SUPPORT ENGINEER: >100 mg/dl Potentially Critical: >250 mg/dl Potentially Fatal >400 mg/dl Ethanol in the patient's blood will contribute to the osmolar gap. Ethanol's contribution to the osmolar gap can be estimated by dividing the concentration of ethanol in mg/dL by 4.6. This test is for clinical use only and does not equal a FLORIAN for legal purposes. us Isiah Lucas MD LAB - CHEMISTRY ORDERABLES Final Result [facility] [address] [place] [address], [facility] [phone] from Last 3 Months Insurance AETNA MEDICARE ADV AETNA MEDICARE ADV Advance Directives * Full Code (Latest Code Status on File) Date Activated Date Inactivated Comments 02/27/2025 3:54 AM 03/02/2025 11:53 AM * Full Code Date Activated Date Inactivated Comments 02/18/2025 2:33 AM 02/26/2025 8:39 PM
--- NOTE | 2025-05-02 08:39 | ED_ITS ---
HPI - Seizure General Chief Complaint: Seizure Stated Complaint: seizure Time Seen by Provider: 05/02/25 08:38 Source: patient Mode of arrival: EMS Limitations: no limitations History of Present Illness HPI Narrative: Patient is a 64-year-old female from a local [facility] came by ambulance for seizure activity about 45 minutes ago. She has a known seizure disorder and she is on Keppra 1000 mg b.i.d.. She has not had a seizure in 1 year. She felt a sensation of seizure coming on and then had about a 2-3 minute seizure and a post ictal period. She is back to baseline at this time. She has a headache in the front of her head since the seizure. No injuries. MD complaint: seizure Onset (ago): hour(s) ( One) Description of Episode: loss of consciousness, tonic-clonic movement and post- event confusion Duration of episode: 2 -: minutes(s) Witnessed: Yes - by Bystander ( [facility]) Trauma: No Seizure History: Yes (gran mal last one 09/2019) Place: home Possible Precipitating Event: none Associated symptoms: malaise and other ( headache) Treatments prior to arrival: none Are you currently using a commercial management accountant's license (CDL) as part of your employment, either self-employed or otherwise?: No Related Data Home Medications ?Medication ?Instructions ?Recorded ?Confirmed ?Last Taken ?Type fluticasone furoate 100 1 ea inhalation DAILY 12/03/24 01/26/20 History mcg-vilanterol 25 mcg/dose inhalation powder (Breo Ellipta) Allergies Allergy/AdvReac Type Severity Reaction Status Date / Time gabapentin Allergy Intermediate tingling Verified 05/02/25 08:37 in lips and tongue....sleepiness carbamazepine Allergy Unknown Drowsy Verified 05/02/25 08:37 varenicline Allergy Unknown drowsiness Verified 05/02/25 08:37 and tingling lips Review of Systems 2 Review of Systems: All systems reviewed & are unremarkable except as noted in HPI and below Constitutional: Constitutional: Reports no additional constitutional complaints Eyes: Eyes: Reports no additional eye complaints ENT: Reports system reviewed and no additional complaints, except as documented Cardiovascular: Cardiovascular: Reports no additional cardiovascular complaints Respiratory: Respiratory: Reports no additional respiratory complaints Gastrointestinal: Gastrointestinal: Reports no additional gastrointestinal complaints Genitourinary: Genitourinary: Reports no additional female genitourinary complaints Musculoskeletal: Musculoskeletal: Reports no additional musculoskeletal complaints Integumentary/Breasts: Skin/Breast: Reports system reviewed and no additional complaints, except as docu Neurologic: Reports system reviewed and no additional complaints, except as documented Psychiatric: Psychiatric: Reports no additional psychiatric complaints Endocrine: Endocrine: Reports no additional endocrine complaints Hematologic/Lymphatic: Hematologic/Lymphatic: Reports no additional hematologic/lymphatic complaints Allergic/Immunologic: Allergic/Immunologic: Reports no additional allergic/immunologic complaints PMFSH Past Medical History Medical History 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 Mixed hyperlipidemia Benign hypertension with CKD (chronic kidney disease) stage III Morbid obesity with BMI of 40.0-44.9, adult Osteopenia Seizure disorder HTN (hypertension) COPD (chronic obstructive pulmonary disease) Family History Family History Sibling Hypertension Family history of coronary artery disease Mother Patient's mother is Family history of lung cancer Other Family history of cardiovascular disease Family history of seizure disorder Social History Social History Smoking packs per day: 1 Smoking cigarettes per day: 20.0 Years smoked: 20 Smoking pack-years: 20.00 Smoking status: Current every day smoker Tobacco type: cigarettes Second hand tobacco smoke exposure: Yes Alcohol intake: current Alcohol use details: social drinker Substance use: never Substance use type: does not use Do You Feel Safe in your Home?: Yes Lack of Transportation: No Lack of Food: Never True Current Housing: I Have Housing Concerned About Future Housing: No Difficulty Paying Gas/Electric Bills: No Difficulty Paying for Meds: No Currently Unemployed: No Education: High School Diploma/GED Difficulty w/ Childcare or Family Care: No Living arrangements: with friend(s) Occupation/Education: retired Gender identity (if verbalized by the patient): Female Sexual Orientation (if Verbalized by the Patient): Straight or Heterosexual Exam 2 Const: General: healthy appearing Nutritional Appearance: well nourished Orientation/consciousness: patient oriented x3 Limitations: no limitations HENMT: Head: normal to inspection Ears: external ears normal F james/Nose/Sinus: Normal external nose present Eyes: Conjunctivae: conjunctivae normal Pupils: Equal, round and reactive pupils present EOM: EOMs intact bilaterally Neck: Neck: normal visual inspection Chest: Chest palpation & inspection: normal inspection of the chest Resp: Effort & Inspection: normal respiratory effort and not labored A uscultation: clear to auscultation bilaterally and no crackles Cardio: Rate: regular rate Rhythm: regular rhythm and abnormal rhythm ( regular irregular) regularly irregular Heart sounds: no murmurs GI: Inspection: non-distended GI Palp: Yes Soft to palpation and No Tenderness to palpation present (GI) Auscultation: normal bowel sounds : General: Yes bladder normal to palpation Back/Spine/Pelvis: Back: no CVA tenderness Skin: General skin exam: normal color Rashes: no rashes Wounds: no wounds Neuro: General: patient oriented x3, moves all extremities, no meningeal signs, no focal motor deficits and CN's II-XI intact bilaterally Cranial nerves: Yes Nystagmus not present Speech: normal speech Gait exam (Neuro): Normal gait present Other: fast exam is negative, NIH score is 0, GCS is 15 Extrem: General: normal to inspection Psych: Appearance: grossly normal Mental Status: mental status grossly normal Affect: normal affect Attitude: cooperative Course Vital Signs Vital signs: Vital Signs Temperature 36.6 C 05/02/25 08:29 Pulse Rate 74 05/02/25 08:29 Respiratory Rate 20 05/02/25 08:29 Blood Pressure 135/102 H 05/02/25 08:29 Pulse Oximetry 98 05/02/25 08:29 Oxygen Delivery Room Air 05/02/25 08:29 Temperature 36.5 C 05/02/25 09:32 Pulse Rate 88 05/02/25 09:32 Respiratory Rate 16 05/02/25 09:32 Blood Pressure 143/68 H 05/02/25 09:32 Pulse Oximetry 95 05/02/25 09:32 Oxygen Delivery Room Air 05/02/25 08:29 MDM - Seizure MDM Narrative Medical decision making narrative: patient is a 64-year-old female with a seizure and known seizures here for evaluation. We will do a workup for reassurance. Consider Nile GLASS. Lab Data Attestation: I reviewed the patient's lab results. 05/02/25 08:58 05/02/25 08:58 Labs: Lab Results 05/02/25 05/02/25 Range/Units 08:58 09:09 WBC 9.4 (4.8-10.8) K/mm3 RBC 4.57 (4.20-5.40) M/mm3 Hgb 13.8 (12.0-15.0) g/dL Hct 42.9 (35.0-49.0) % MCV 93.9 (78.0-102.0) fL MCH 30.2 (27.0-31.0) pg MCHC 32.2 (32-36) g/dL RDW 13.0 (11.6-14.4) % Plt Count 281 (150-420) K/mm3 MPV 9.4 (9.2-11.8) fl Immature Gran % (Auto) 0.4 H (0.0-0.0) % Neut % (Auto) 72.6 H (50.0-70.0) % Lymph % (Auto) 19.9 (18.0-42.0) % [place] % (Auto) 5.3 (2.0-11.0) % Eos % (Auto) 1.5 (1.0-6.0) % Baso % (Auto) 0.3 (0.0-1.0) % Lymph # (Auto) 1.86 (1.10-4.50) K/mm3 [place] # (Auto) 0.50 (0.10-0.90) K/mm3 Eos # (Auto) 0.14 (0.02-0.50) K/mm3 Baso # (Auto) 0.03 (0.00-0.10) K/mm3 Abs Immat Gran (auto) 0.04 H (0.00-0.00) K/mm3 Absolute Neuts (auto) 6.79 (1.70-7.20) K/mm3 Absolute Nucleated RBC 0.00 (0.00-0.00) K/mm3 Nucleated RBC % 0.0 (0-0.0) % Sodium 142 (137-145) mmol/L Potassium 4.0 (3.4-5.0) mmol/L Chloride 106 (98-107) mmol/L Carbon Dioxide 29 (22-30) mmol/L Anion Gap 7 (4-12) mmol/L BUN 15 (7-17) mg/dL Creatinine 1.18 H (0.7-1.0) mg/dL Estim Creat Clear Calc 46 ml/min Estimated GFR 46 L (59 - ) Glucose 111 H (65-110) mg/dL Calculated Osmolality 295 (285-295) mOsm/kg Calcium 9.6 (8.4-10.2) mg/dL Total Bilirubin 0.5 (0.2-1.3) mg/dL AST 23 (14-36) U/L ALT 14 (6-35) U/L Alkaline Phosphatase 82 (38-126) U/L Total Creatine Kinase 66 (30-135) U/L Troponin I < 0.012 (0.000-0.034) ng/mL Total Protein 6.9 (6.3-8.2) g/dL Albumin 4.1 (3.5-5.1) g/dL Urine Color Light yellow (Yellow) Urine Appearance Clear (Clear) Urine pH 5.5 (5.0-8.0) Ur Specific Hope 1.020 (1.010-1.020) Urine Protein Negative (Negative) Urine Glucose (UA) Negative (Negative) Urine Ketones Negative (Negative) Ur Blood (Man) Trace-intact H (Negative) Urine Nitrate Negative (Negative) Urine Bilirubin Negative (Negative) Urine Urobilinogen 0.2 (0.2-1.0) mg/dL Leukocyte Esterase Rfl Negative (Negative) DARWIN/UL Imaging Data Attestation: I personally reviewed and interpreted this imaging study as follows: Radiologist's impression: Chest x-ray is negative for acute process CT scan of the head was negative for acute process and shows chronic changes ECG Data EKG #1: Attestation: I personally reviewed and interpreted this ECG as follows: ECG completion date: 05/02/25 ECG completion time: 08:51 EKG Interpretation: normal rate, sinus rhythm, no ectopy, non-specific ST changes, normal QRS, normal QT and NL axis Discharge Plan Discharge Clinical Impression: Breakthrough seizure Epilepsy Qualifiers: Epilepsy type: other generalized Intractability: not intractable Status epilepticus: without status epilepticus Qualified Code(s): G40.409 - Other generalized epilepsy and epileptic syndromes, not intractable, without status epilepticus Patient Disposition: Home Condition: Stable Instructions: Epilepsy (ED) Patient Language: Portuguese Prescriptions: No Action albuterol sulfate 2.5 mg /3 mL (0.083 %) solution for nebulization 2.5 mg inhalation Q4-6H PRN (Reason: shortness of breath or wheezing) Qty: 180 3RF amlodipine 5 mg tablet 5 mg PO DAILY Qty: 30 5RF sertraline 100 mg tablet 200 mg PO DAILY Qty: 180 1RF Breo Ellipta 100-25 mcg/dose blister with device 1 ea INHALATION DAILY lorazepam 0.5 mg tablet 0.5 mg PO BID PRN (Reason: anxiety) Qty: 10 0RF levetiracetam 500 mg tablet 500 mg PO BID Qty: 90 1RF lisinopril 40 mg tablet See Rx Instructions .ROUTE .COMPLEX Qty: 90 2RF Dose Instruction: TAKE 1 TABLET BY MOUTH EVERY DAY Rx Instructions: TAKE 1 TABLET BY MOUTH EVERY DAY buspirone 5 mg tablet 5 mg PO BID Qty: 180 1RF albuterol sulfate 90 mcg/actuation HFA aerosol inhaler 1 inh inhalation Q4H PRN (Reason: shortness of breath or wheezing) Qty: 6.7 1RF rosuvastatin [Crestor] 10 mg tablet 10 mg PO DAILY Qty: 90 2RF alendronate 70 mg tablet 70 mg PO WEEKLY Qty: 12 2RF meloxicam 15 mg tablet 15 mg PO DAILY Qty: 30 3RF Rx Instructions: take with food ropinirole 1 mg tablet 1 mg PO TID Qty: 270 1RF Follow-up/Referrals: Azeem Bess MD [Primary Care Provider, Internal Medicine] Time of Disposition: 09:51
--- NOTE | 2025-05-02 08:44 | ECG_ITS ---
Test Date: 2025-05-02 08:51:05 Measurements Intervals [place] Rate: 61 P: 43 AR: 135 QRS: 25 QRSD: 88 T: 53 QT: 416 QTc: 419 Interpretive Statements SINUS RHYTHM NORMAL ECG Compared to ECG 02/28/2024 15:19:28 HEART RATE HAS INCREASED Electronically Signed On 05-02-2025 09:03:54 CDT by Anthony Horan D.O.
[2025-05-02 09:03] LABS: Hematocrit 42.9 % (35.0-49.0); Hemoglobin 13.8 g/dL (12.0-15.0); Immature Granulocyte Percent A 0.4 % (0.0-0.0); Lymphocytes Absolute Auto 1.86 K/mm3 (1.10-4.50); Mean Corpuscular HGB Conc 32.2 g/dL (32-36); Mean Corpuscular Hemoglobin 30.2 pg (27.0-31.0); Mean Corpuscular Volume 93.9 fL (78.0-102.0); Nucleated Red Blood Cells Absolute Auto 0.00 K/mm3 (0.00-0.00); Nucleated Red Blood Cells Perc 0.0 % (0-0.0); Platelet Count Result 281 K/mm3 (150-420); Red Blood Count 4.57 M/mm3 (4.20-5.40); White Blood Count 9.4 K/mm3 (4.8-10.8)
[2025-05-02 09:14] LABS: Alanine Aminotransferase 14 U/L (6-35); Albumin Level 4.1 g/dL (3.5-5.1); Alkaline Phosphatase 82 U/L (38-126); Anion Gap 7 mmol/L (4-12); Aspartate Amino Transferase 23 U/L (14-36); Bilirubin,Total 0.5 mg/dL (0.2-1.3); Blood Urea Nitrogen 15 mg/dL (7-17); Calcium 9.6 mg/dL (8.4-10.2); Carbon Dioxide 29 mmol/L (22-30); Chloride 106 mmol/L (98-107); Creatine Kinase 66 U/L (30-135); Estimated CRCL calculation 46 ml/min; Estimated Glomerular Filt Rate 46; Glucose 111 mg/dL (65-110); Osmolality Calculated 295 mOsm/kg (285-295); Potassium 4.0 mmol/L (3.4-5.0); Sodium 142 mmol/L (137-145); Total Protein 6.9 g/dL (6.3-8.2)
[2025-05-02 09:23] LABS: Add Urine Microscopic? NO; Appearance Urine Clear (Clear); Glucose Urine UA Negative (Negative); Leukocyte Esterase Ur Negative LEU/UL (Negative); Nitrate Urine Negative (Negative); Specific Grav Ur 1.020 (1.010-1.020)
[2025-05-02 09:26] LABS: Troponin I < 0.012 ng/mL (0.000-0.034)
--- OUTSIDE RECORDS SUMMARY | 2025-05-02 09:31 | XMS_ITS | Clinical Summary ---
Author Organization [facility] Address [address] [place] [id number] Care Team Providers Care Hardness Tester Name Role Phone Gabriel Diego MD Primary Care Provider Gabriel Diego MD Unavailable [phone] Allergies Active Allergy Reactions Criticality Noted Date [...] 06/15/2020 Assessment & Plan (09/23/2020 11:02 AM CONTROL ROOM HELPER): Patient has peripheral arterial disease is well [...] 06/15/2020 Assessment & Plan (09/23/2020 11:02 AM CONTROL ROOM HELPER): Claudication symptoms are at 5 blocks. I [...] 06/15/2020 Assessment & Plan (09/23/2020 11:11 AM CONTROL ROOM HELPER): Well controlled on medications at this time. Assessment & Plan (06/15/2020 2:34 PM CDT): Followed by her PCP and on medications at this time. Seizure 06/15/2020 Assessment & Plan (09/23/2020 11:11 AM CONTROL ROOM HELPER): Patient has had multiple episodes of seizures [...] on file Legal Sex Female 8:26 AM CONTROL ROOM HELPER Gender Identity Not on file Sexual Orientation Not on file Obstetrics History Last Filed Vital Signs Vital Sign Reading Time Taken Comments Blood Pressure 132/82 09/21/2020 1:10 PM CONTROL ROOM HELPER Pulse 69 09/21/2020 1:10 PM CONTROL ROOM HELPER Temperature - - Respiratory Rate - - Oxygen Saturation - - Inhaled Oxygen Concentration - - Weight 97.1 kg (214 lb) 09/21/2020 1:10 PM CONTROL ROOM HELPER Height 154.9 cm (5' 1) 09/21/2020 1:10 PM CONTROL ROOM HELPER Body Mass Index 40.43 09/21/2020 1:10 PM CONTROL ROOM HELPER Plan of Treatment Health Maintenance Due Date [...] PCV20 or PCV21) 08/01/2026 08/01/2021, 09/22/[address] [facility] Care Teams Hardness Tester Relationship Specialty Start Date End Date Gabriel Diego MD [address] [facility] [address] [place] [address] PCP - General 09/13/20 Gabriel Diego MD [address] [place] [address] [place] [address] Family Medicine 09/13/20
--- OUTSIDE RECORDS SUMMARY | 2025-05-02 09:31 | XMS_ITS | Clinical Summary ---
Author Organization [facility] Address [address] [place] [address] Phone Care Team Providers Care Chemical Processor Name Role Phone Azeem Bess MD Primary Care Provider Allergies Active Allergy Reactions Criticality Noted Date Comments Carbamazepine Unknown 04/06/2025 Gabapentin Unknown 04/06/2025 Varenicline Unknown 04/06/2025 Medications alendronate (FOSAMAX) 70 MG Tablet 02/15/2025 Active amLODIPine (NORVASC) 10 MG Tablet 03/23/2025 Active busPIRone (BUSPAR) 10 MG Tablet 03/23/2025 Active famotidine (PEPCID) 20 MG Tablet 03/23/2025 Active LevETIRAcetam (KEPPRA) 1000 MG Tablet 03/23/2025 Active meloxicam (MOBIC) 15 MG Tablet 03/23/2025 Active mirtazapine (REMERON) 15 MG Tablet 03/23/2025 Active rOPINIRole (REQUIP) 1 MG Tablet 02/15/2025 Active Social History Tobacco Use Types Packs/Day Years Used Date Smoking Tobacco: Every Day Cigarettes Smokeless Tobacco: Never Tobacco Cessation:Ready to Q uit: Not Asked; Counseling Given: Not Answered Alcohol Use Standard Drinks/Week Comments Not Currently 0 (1 standard drink = 0.6 oz pur e alcohol) Comments Unknown Sex and Gender Information Value Date Recorded Sex Assigned at Not on file Legal Sex Female 10:21 PM CDT Gender Identity Not on file Sexual Orientation Not on file Plan of Treatment Upcoming Encounters Date Type Department Care Team ([facility] st Contact Info) Description 06/18/2025 9:00 AM CDT Office Visit [facility] [address] [place] [address] Laureen Gibson, SPECIAL EDUCATOR, RECORDS AND INFORMATION MANAGER [address] [place] [address] Health Maintenance Due Date Last Done Comments Hepatitis C Virus (HCV) Screening 1961 Mammogram 1961 TdaP Immunization 1961 Pap Smear 1982 Cervical Cancer Screening (CCS) 1991 HPV/Cotest 1991 Cologuard 2006 Colonoscopy 2006 Colorectal Cancer Screening 2006 Immunochemical Fecal Occult Blood 2006 SARS-COV-2 Immunization ( season) 2024 10/01/2023, 07/18/2021, 11/15/2020 Influenza Immunization (#1) 05/10/202505/11, 08/01/2022, 07/21/2013 Pneumococcal Immunization (5 0+ years) (3 of 3 - PCV20 or PCV21) 08/01/2026 08/01/2021, 09/22/2019 Respiratory Syncytial Virus (RSV) Immunization (Adult) (1 - 1-dose 75+ series) 2036 Zoster Immunization Completed 10/01/2023, 06/04/2023 Hepatitis B Immunization Aged Out No longer eligible based on patient's age to complete this topic Human Papillomavirus (HPV) Immunization Aged Out No longer eligible b ased on patient's age to complete this topic Meningococcal Immunization (ACWY) Aged Out No longer eligible b ased on patient's age to complete this topic Rotavirus Immunization Aged Out No lo nger eligible based on patient's age to complete this topic Insurance MEDICARE C AETNA Care Teams Chemical Processor Relationship Specialty Start Date End Date Azeem Bess MD [address] [place] [address] PCP - General Pediatrics 04/01/25
--- OUTSIDE RECORDS SUMMARY | 2025-05-02 09:31 | XMS_ITS | Clinical Summary ---
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 60 tablet 11 5 Active Active Problems Problem Noted Date Diagnosed Date Seizure ([facility]) 06/15/2020 Overview (10/24/2021): Last Assessment & Plan: [...] Sex Assigned at Female 11/13/2024 4:23 PM SENIOR ART DIRECTOR Legal Sex Female 7:10 PM CDT Gender Identity Not on file Sexual Orientation Not on file Last Filed Vital Signs Vital Sign Reading Time Taken Comments Blood Pressure 155/75 11/13/2024 6:49 PM SENIOR ART DIRECTOR Pulse 68 11/13/2024 6:35 PM SENIOR ART DIRECTOR Temperature 36.7 C (98 F) 11/13/2024 4:16 PM SENIOR ART DIRECTOR Respiratory Rate 20 11/13/2024 6:35 PM SENIOR ART DIRECTOR Oxygen Saturation 94% 11/13/2024 6:35 PM SENIOR ART DIRECTOR Inhaled Oxygen Concentration - - Weight 99.4 kg (219 lb 2.2 oz) 11/13/2024 4:16 P M SENIOR ART DIRECTOR Height 154.9 cm (5' 1) 11/13/2024 4:16 PM SENIOR ART DIRECTOR Body Mass Index 41.41 11/13/2024 4:16 PM SENIOR ART DIRECTOR Plan of Treatment Health Maintenance Due Date [...] or PCV21) 08/01/2026 08/01/2021, 09/22/2019 PHQ-2 (Physician Hines) Completed 09/29/2024 Meningococcal B Vaccine Aged Out No l onger eligible based on patient's age to complete this topic Meningococcal Vaccine Aged Out No mary kate flor eligible based on patient's age to complete this topic RSV Immunizations Under 20 Months Aged Out No longer eligible b ased on patient's age to complete this topic Insurance AETNA Care Teams Director Cloud Transformation Relationship Specialty Start Date End Date Gabriel Diego MD [address] [place] [address] PCP - General FAMILY PRACTICE 04/23/22
== END 2025-05-02 09:51 | disposition home or self-care (01) ==
LOC: CHSED 09:29
PROVIDERS: Emergency Provider Emergency Medicine; PCP Family Medicine
DX: G40.409 Other generalized epilepsy and epileptic syndromes, not intractable, without status epilepticus (principal); J44.9 Chronic obstructive pulmonary disease, unspecified; I12.9 Hypertensive chronic kidney disease with stage 1 through stage 4 chronic kidney disease, or unspecified chronic kidney disease; N18.30 Chronic kidney disease, stage 3 unspecified; F17.210 Nicotine dependence, cigarettes, uncomplicated; E78.2 Mixed hyperlipidemia; Z79.899 Other long term (current) drug therapy
CPT/HCPCS: 36415; 70450; 71046; 80053; 81003; 82550; 84484; 85025; 93005; 99284; A9270

== ENCOUNTER 2025-08-04 08:53 | Outpatient (CLI) | payer MEDICARE, SELFPAY ==
--- OUTSIDE RECORDS SUMMARY | 2025-08-04 09:17 | XMS_ITS | Clinical Summary ---
Author Organization [facility] Address [address] [place] [address] Phone Care Team Providers Care Backside Grinder Name Role Phone Azeem Bess MD Primary Care Provider [phone] Laureen Gibson APRN, GAS SYSTEM OPERATOR Unavailable [phone]- [phone] Allergies Active Allergy Reactions Criticality Noted Date Comments Carbamazepine Unknown 04/06/2025 Gabapentin Unknown 04/06/2025 Medications alendronate (FOSAMAX) 70 MG Tablet 02/15/2025 Active amLODIPine (NORVASC) 10 MG Tablet 03/23/2025 Active busPIRone (BUSPAR) 10 MG Tablet 03/23/2025 Active famotidine (PEPCID) 20 MG Tablet 03/23/2025 Active LevETIRAcetam (KEPPRA) 1000 MG Tablet 03/23/2025 Active meloxicam (MOBIC) 15 MG Tablet 03/23/2025 Active mirtazapine (REMERON) 15 MG Tablet 03/23/2025 Active rOPINIRole (REQUIP) 1 MG Tablet 02/15/2025 Active ALBUTEROL SULFATE HFA IN take by inhalation. Active docusate sodium (COLACE) 100 MG Capsule Take 100 mg by mouth 2 times daily. Active Active Problems No known active problems Encounters Date Type Department Care Team Description 06/30/2025 Results Follow-Up [facility] [address] [place] [address] Laureen Gibson APRN, GAS SYSTEM OPERATOR EEG AWAKE OR DROWSY ROUTINE 06/25/2025 10:30 AM CDT [facility] [address] [place] [address] Laureen Gibson APRN, GAS SYSTEM OPERATOR Seizure disorder Discharge Disposition: Discharged to home or Selfcare 06/24/2025 Travel 06/18/2025 9:00 AM CDT Office Visit [facility] [address] [place] [address] Laureen Gibson APRN, GAS SYSTEM OPERATOR Seizure disorder (Primary Dx); Hypertension, unspecified type Discharge Disposition: Discharged to home or Selfcare 06/18/2025 Travel from Last 3 Months Family History Medical History Relation Name Comments Cerebral Anuerysm Mother Seizures Paternal Uncle Relation Name Status Comments Father Mother Paternal Uncle Social History Tobacco Use Types Packs/Day Years Used Date Smoking Tobacco: Every Day Cigarettes 0.5 35.9 Started: 09/09/1989 Smokeless Tobacco: Never Tobacco Cessation:Ready to Q uit: Yes; Counseling Given: Yes Alcohol Use Standard Drinks/Week Comments Not Currently 0 (1 standard drink = 0.6 oz pur e alcohol) Comments Unknown Sex and Gender Information Value Date Recorded Sex Assigned at Not on file Legal Sex Female 10:21 PM CDT Gender Identity Not on file Sexual Orientation Not on file Last Filed Vital Signs Vital Sign Reading Time Taken Comments Blood Pressure 140/80 06/18/2025 9:09 AM CDT Pulse 96 06/18/2025 9:09 AM CDT Temperature 36.7 C (98 F) 06/18/2025 9:09 AM CDT Respiratory Rate 18 06/18/2025 9:09 AM CDT Oxygen Saturation 97% 06/18/2025 9:09 AM CDT Inhaled Oxygen Concentration - - Weight 104.7 kg (230 lb 12.8 oz) 06/18/2025 9:09 AM CDT Height 154.9 cm (5' 1) 06/18/2025 9:09 AM CDT Body Mass Index 43.61 06/18/2025 9:09 AM CDT Plan of Treatment Upcoming Encounters Date Type Department Care Team (Late st Contact Info) Description 09/17/2025 9:30 AM WELFARE OFFICER [facility] [address] [place] [address] Laureen Gibson, STUDIO SALES ASSOCIATE, GAS SYSTEM OPERATOR [address] [place] [address] Health Maintenance Due Date Last Done Comments Hepatitis C Virus (HCV) Screening 1961 Mammogram 1961 Pap Smear 1982 Cervical Cancer Screening (CCS) 1991 HPV/Cotest 1991 Cologuard 2006 Colonoscopy 2006 Colorectal Cancer Screening 2006 Immunochemical Fecal Occult Blood 2006 Respiratory Syncytial Virus (RSV) Immunization (Adult) (1 - Risk 50-74 years 1-dose series) 2011 Welcome to Medicare (IPPE) G0402 09/09/2024 Influenza Immunization (#1) 2025 092 02/2023, 08/01/2022, 06/22/2020, Additional history exists SARS-COV-2 Immunization ( - 2024- season) 2025 10/01/2023, 07/18/2021, 11/15/2020 Pneumococcal Immunization (50+ years) (3 of 3 - PCV20 or PCV21) 08/01/2026 08/01/2021, 09/22/2019, 12/12/2011 TdaP Immunization Completed 10/29/2011 Zoster Immunization Completed 10/01/2023, 3 Hepatitis B Immunization Aged Out No longer eligible based on patient's age to complete this topic Human Papillomavirus (HPV) Immunization Aged Out No longer eligible based on patient's age to complete this topic Meningococcal Immunization (ACWY) Aged Out No longer eligible based on patient's age to complete this topic Rotavirus Immunization Aged Out No lo nger eligible based on patient's age to complete this topic Procedures Procedure Name Priority Date/Time Associated Diagnosis Comments EEG AWAKE OR DROWSY ROUTINE Routine 06/25/2025 10:30 AM CDT Seizure disorder from Last 3 Months Results * EEG AWAKE OR DROWSY ROUTINE (06/25/2025 10:30 AM CDT) Narrative Tolu Simms MD - 06/25/2025 10:30 AM CDT Tolu Simms MD 06/30/2025 10:08 AM Electroencephalography Date of EE06/25/25 Clinical History: The patient is a 65 year old female who has been experiencing episodes of seizure. EEG Description: This EEG was recorded on a Keyonna with 18 cranial leads and an EKG. The International 10-20 system was used for electrode placement. Background: The recording was done during wakefulness, drowsiness and sleep. There was a normal posterior dominant rhythm, with a normal posterior to anterior gradient. Sleep: Normal sleep architecture noted, including sleep spindles and posts. Activation Procedures: Hyperventilation produced no epileptic discharges. Photic stimulation shows good driving. Epileptic Discharges: No epileptic discharges noted. Interpretation: This is a normal EEG during wakefulness, drowsiness and sleep. No epileptic discharges were seen. A normal EEG does not rule out seizure and clinical correlation is recommended. us Laureen Gibson APRN, GAS SYSTEM OPERATOR NEUROLOGY ORDERABLES Final Result from Last 3 Months Insurance MEDICARE C AET Care Teams Backside Grinder Relationship Specialty Start Date End Date Azeem Bess MD [address] [place] [address] PCP - General Pediatrics 04/01/25 Laureen Gibson APRN, GAS SYSTEM OPERATOR [address] [place] [address] Nurse Practitioner Advanced Practice Nurse 06/18/25
--- OUTSIDE RECORDS SUMMARY | 2025-08-04 09:17 | XMS_ITS | Clinical Summary ---
Author Organization [facility] Address [address] [place] [address] Care Team Providers Care Yard Hand Name Role Phone Gabriel Diego MD Primary Care Provider Gabriel Diego MD Unavailable [phone] Allergies Active Allergy Reactions Criticality Noted Date [...] 06/15/2020 Assessment & Plan (09/23/2020 11:02 AM AUTO MECHANICS INSTRUCTOR): Patient has peripheral arterial disease is well [...] 06/15/2020 Assessment & Plan (09/23/2020 11:02 AM AUTO MECHANICS INSTRUCTOR): Claudication symptoms are at 5 blocks. I [...] 06/15/2020 Assessment & Plan (09/23/2020 11:11 AM AUTO MECHANICS INSTRUCTOR): Well controlled on medications at this time. Assessment & Plan (06/15/2020 2:34 PM CDT): Followed by her PCP and on medications at this time. Seizure 06/15/2020 Assessment & Plan (09/23/2020 11:11 AM AUTO MECHANICS INSTRUCTOR): Patient has had multiple episodes of seizures [...] on file Legal Sex Female 8:26 AM AUTO MECHANICS INSTRUCTOR Gender Identity Not on file Sexual Orientation Not on file Last Filed Vital Signs Vital Sign Reading Time Taken Comments Blood Pressure 132/82 09/21/2020 1:10 PM AUTO MECHANICS INSTRUCTOR Pulse 69 09/21/2020 1:10 PM AUTO MECHANICS INSTRUCTOR Temperature - - Respiratory Rate - - Oxygen Saturation - - Inhaled Oxygen Concentration - - Weight 97.1 kg (214 lb) 09/21/2020 1:10 PM AUTO MECHANICS INSTRUCTOR Height 154.9 cm (5' 1) 09/21/2020 1:10 PM AUTO MECHANICS INSTRUCTOR Body Mass Index 40.43 09/21/2020 1:10 PM AUTO MECHANICS INSTRUCTOR Plan of Treatment Health Maintenance Due Date [...] PCV20 or PCV21) 08/01/2026 08/01/2021, 09/22/2019 Insurance [facility] Member Subscriber Plan / Payer (Ef fective 2016-Present) Name:Alberta Smith Relation to Subscriber:Self Name:Alberta Smith Payer ID:[id number] (NAIC) Type:MEDICARE RISK OTHER Address: [place] [id number] Care Teams Yard Hand Relationship Specialty Start Date End Date Gabriel Diego MD [address] [facility] [address] [place] [address] PCP - General 09/13/20 Gabriel Diego MD [address] [facility] [address] [place] [address] Family Medicine 09/13/20
--- OUTSIDE RECORDS SUMMARY | 2025-08-04 09:17 | XMS_ITS | Encounter Summary ---
Author Organization [facility] Address [address] [place] [address] Phone Care Team Providers Care Fund Director Name Role Phone Azeem Bess MD Primary Care Provider [phone] Laureen Gibson APRN, NONA Unavailable [phone]- [phone] Encounter Details Date Type Department Care Team (Late Contact Info) Description 06/30/2025 Results Follow-Up [facility] - Neurology - [place] [address] [place] [id number] Laureen Gibson APRN, NONA [address] [place] [address] EEG AWAKE OR DROWSY ROUTINE Social History Tobacco Use Types Packs/Day Years Used Date Smoking Tobacco: Every Day Cigarettes 0.5 35.9 Started: 09/09/1989 Smokeless Tobacco: Never Alcohol Use Standard Drinks/Week Comments Not Currently 0 (1 standard drink = 0.6 oz pur e alcohol) Comments Unknown Sex and Gender Information Value Date Recorded Sex Assigned at Not on file Legal Sex Female 10:21 PM CDT Gender Identity Not on file Sexual Orientation Not on file documented as of this encounter Progress Notes * Laureen Gibson APRN, CNS - 06/30/2025 12:56 PM CDT Please let Alberta know that the EEG was normal. documented in this encounter Plan of Treatment Upcoming Encounters Date Type Department Care Team (Late Contact Info) Description 09/17/2025 9:30 AM ADDING MACHINE SERVICER Office Visit [facility] - [facility]rology [facility] [address] [place] [address] Laureen Gibson APRN, MACHINING ENGINEER [address] [place] [address] documented as of this encounter Visit Diagnoses Not on filedocumented in this encounter Care Teams Fund Director Relationship Specialty Start Date End Date Azeem Bess MD [address] [place] [address] PCP - General Pediatrics 04/01/25 Laureen Gibson APRN, MACHINING ENGINEER [address] [place] [address] Nurse Practitioner Advanced Practice Nurse 06/18/25 documented as of this encounter
== END 2025-08-04 08:54 | disposition home or self-care (01) ==
LOC: CHSCARD 08:55
PROVIDERS: PCP Family Medicine; Visit Provider Family Medicine
DX: R06.09 Other forms of dyspnea (principal); R94.2 Abnormal results of pulmonary function studies
CPT/HCPCS: 94060; 94726; 94729

== ENCOUNTER 2025-08-11 17:36 | Emergency (ER) | payer MEDICARE, SELFPAY ==
--- NOTE | ~2025-08-11 | XR_ITS ---
EXAMINATION: XR chest 2V 08/11/2025 18:14 INDICATION: Cough PROCEDURE: 2 view chest COMPARISON: 05/02/2025 FINDINGS: The lungs are clear. The cardiomediastinal silhouette is within normal limits. There are no pleural effusions. There is no pneumothorax suspected. IMPRESSION: 1: NO ACUTE CARDIOPULMONARY DISEASE. Reviewed, dictated and finalized at location I. OPATHOLOGIST
--- OUTSIDE RECORDS SUMMARY | 2025-08-11 17:38 | XMS_ITS | Clinical Summary ---
Author Organization [facility] Address [facility] [place] [address] Care Team Providers Care Production Control Pegboard Clerk Name Role Phone Gabriel Diego MD Primary Care Provider [phone] Allergies Active Allergy Reactions Criticality Noted Date [...] focal epilepsy with complex partial seizures (CMS/HCC [facility]) Take 1 tablet (500 mg total) by [...] focal epilepsy with complex partial seizures (CMS/HCC HHS/HCC) Take 1.5 tablets (750 mg total) by mouth 2 (two) times daily. 60 tablet 11 5 Active Active Problems Problem Noted Date Diagnosed Date Seizure 06/15/2020 Overview (10/24/2021): Last Assessment & Plan: [...] Sex Assigned at Female 11/13/2024 4:23 PM FACILITY ADMINISTRATOR Legal Sex Female 7:10 PM CDT Gender Identity Not on file Sexual Orientation Not on file Last Filed Vital Signs Vital Sign Reading Time Taken Comments Blood Pressure 155/75 11/13/2024 6:49 PM FACILITY ADMINISTRATOR Pulse 68 11/13/2024 6:35 PM FACILITY ADMINISTRATOR Temperature 36.7 C (98 F) 11/13/2024 4:16 PM FACILITY ADMINISTRATOR Respiratory Rate 20 11/13/2024 6:35 PM FACILITY ADMINISTRATOR Oxygen Saturation 94% 11/13/2024 6:35 PM FACILITY ADMINISTRATOR Inhaled Oxygen Concentration - - Weight 99.4 kg (219 lb 2.2 oz) 11/13/2024 4:16 P M FACILITY ADMINISTRATOR Height 154.9 cm (5' 1) 11/13/2024 4:16 PM FACILITY ADMINISTRATOR Body Mass Index 41.41 11/13/2024 4:16 PM FACILITY ADMINISTRATOR Plan of Treatment Health Maintenance Due Date [...] 1-dose series) 2021 COVID-19 Vaccine (3 - 2024-2 6 season) 2025 07/18/2021, 11/15/2020 Influenza Adult (#1) 2025 07/21/2013 Pneumococcal Vaccine: 50+ Years (3 of 3 - PCV20 or PCV21) 08/01/2026 08/01/2021, 09/22/2019 PHQ-2 (Physician Susan) Completed 09/29/2024 Hepatitis A Vaccines Aged Out No long er eligible based on patient's age to complete this topic Meningococcal B Vaccine Aged Out No l onger eligible based on patient's age to complete this topic Meningococcal Vaccine Aged Out No mary kate flor eligible based on patient's age to complete this topic RSV Immunizations Under 20 Months Aged Out No longer eligible b ased on patient's age to complete this topic Insurance [employer] MEDICARE Care Teams Production Control Pegboard Clerk Relationship Specialty Start Date End Date Gabriel Diego MD [address] [place] [address] PCP - General FAMILY PRACTICE 04/23/22
--- OUTSIDE RECORDS SUMMARY | 2025-08-11 17:38 | XMS_ITS | Clinical Summary ---
Author Organization [facility] Address [address] [place] [address] Care Team Providers Care Hospital Staff Pharmacist Name Role Phone Gabriel Diego MD Primary Care Provider Gabriel Diego MD Unavailable [phone] Allergies Active Allergy Reactions Criticality Noted Date [...] 06/15/2020 Assessment & Plan (09/23/2020 11:02 AM GAS WELDER APPRENTICE): Patient has peripheral arterial disease is well [...] 06/15/2020 Assessment & Plan (09/23/2020 11:02 AM GAS WELDER APPRENTICE): Claudication symptoms are at 5 blocks. I [...] 06/15/2020 Assessment & Plan (09/23/2020 11:11 AM GAS WELDER APPRENTICE): Well controlled on medications at this time. Assessment & Plan (06/15/2020 2:34 PM CDT): Followed by her PCP and on medications at this time. Seizure 06/15/2020 Assessment & Plan (09/23/2020 11:11 AM GAS WELDER APPRENTICE): Patient has had multiple episodes of seizures [...] on file Legal Sex Female 8:26 AM GAS WELDER APPRENTICE Gender Identity Not on file Sexual Orientation Not on file Last Filed Vital Signs Vital Sign Reading Time Taken Comments Blood Pressure 132/82 09/21/2020 1:10 PM GAS WELDER APPRENTICE Pulse 69 09/21/2020 1:10 PM GAS WELDER APPRENTICE Temperature - - Respiratory Rate - - Oxygen Saturation - - Inhaled Oxygen Concentration - - Weight 97.1 kg (214 lb) 09/21/2020 1:10 PM GAS WELDER APPRENTICE Height 154.9 cm (5' 1) 09/21/2020 1:10 PM GAS WELDER APPRENTICE Body Mass Index 40.43 09/21/2020 1:10 PM GAS WELDER APPRENTICE Plan of Treatment Health Maintenance Due Date [...] PCV20 or PCV21) 08/01/2026 08/01/2021, 09/22/2019 Insurance [facility] Member Subscriber Plan / Payer (Ef fective 2016-Present) Name:Alberta Smith Relation to Subscriber:Self Name:Alberta Smith Payer ID:[id number] (NAIC) Type:MEDICARE RISK OTHER Address: [place] [id number] Care Teams Hospital Staff Pharmacist Relationship Specialty Start Date End Date Gabriel Diego MD [address] [facility] [address] [place] [address] PCP - General 09/13/20 Gabriel Diego MD [address] [facility] [address] [place] [address] Family Medicine 09/13/20
[2025-08-11 17:42] VITALS: O2SAT 97
--- NOTE | 2025-08-11 17:46 | ED.URI ---
HPI - URI/Sore Throat General Chief Complaint: Upper Respiratory Infection Stated Complaint: chest cold, vomiting Time Seen by Provider: 08/11/25 17:46 Source: patient Mode of arrival: EMS Limitations: no limitations History of Present Illness HPI Narrative: Patient is a 65-year-old female with a cough and chest congestion with some discolored phlegm for the past week. MD elicited complaint: cough, rhinorrhea and nasal congestion Pertinent past history: other (Hypertension) Onset (ago): week(s) (1) Consistency: constant Severity: moderate Pain scale (0-10): 0 Description of mucous: green Able to tolerate fluids by mouth: Yes Exacerbating factors: exertion Relieving factors: nothing Context: other (Patient having upper respiratory and chest congestion for the past week [facility]) Associated symptoms: nasal congestion and cough Treatments prior to arrival: none Related Data Home Medications ?Medication ?Instructions ?Recorded ?Confirmed ?Last Taken ?Type fluticasone furoate 100 1 ea inhalation DAILY 01/15/20 12/03/24 01/26/20 History mcg-vilanterol 25 mcg/dose inhalation powder (Breo Ellipta) amlodipine 10 mg tablet mg 08/11/25 Unknown History buspirone 10 mg tablet mg 08/11/25 Unknown History famotidine 20 mg tablet mg 08/11/25 Unknown History levetiracetam 1,000 mg tablet mg PO 08/11/25 Unknown History mirtazapine 15 mg tablet mg 08/11/25 Unknown History trazodone 50 mg tablet mg 08/11/25 Unknown History Allergies Allergy/AdvReac Type Severity Reaction Status Date / Time gabapentin Allergy Intermediate tingling Verified 08/11/25 17:39 in lips and tongue....sleepiness carbamazepine Allergy Unknown Drowsy Verified 08/11/25 17:39 varenicline Allergy Unknown drowsiness Verified 08/11/25 17:39 and tingling lips Review of Systems Review of Systems: All systems reviewed & are unremarkable except as noted in HPI and below Constitutional: Constitutional: Reports no additional constitutional complaints Eyes: Eyes: Reports no additional eye complaints ENT: Reports system reviewed and no additional complaints, except as documented Cardiovascular: Cardiovascular: Reports no additional cardiovascular complaints Respiratory: Respiratory: Reports no additional respiratory complaints Gastrointestinal: Gastrointestinal: Reports no additional gastrointestinal complaints Genitourinary: Genitourinary: Reports no additional female genitourinary complaints Musculoskeletal: Musculoskeletal: Reports no additional musculoskeletal complaints Integumentary/Breasts: Skin/Breast: Reports system reviewed and no additional complaints, except as docu Neurologic: Reports system reviewed and no additional complaints, except as documented Psychiatric: Psychiatric: Reports no additional psychiatric complaints Endocrine: Endocrine: Reports no additional endocrine complaints Hematologic/Lymphatic: Hematologic/Lymphatic: Reports no additional hematologic/lymphatic complaints Allergic/Immunologic: Allergic/Immunologic: Reports no additional allergic/immunologic complaints PMFSH Past Medical History Medical History 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 Mixed hyperlipidemia Benign hypertension with CKD (chronic kidney disease) stage III Morbid obesity with BMI of 40.0-44.9, adult Osteopenia Seizure disorder HTN (hypertension) COPD (chronic obstructive pulmonary disease) Family History Family History Sibling Hypertension Family history of coronary artery disease Mother Patient's mother is Family history of lung cancer Other Family history of cardiovascular disease Family history of seizure disorder Social History Social History Smoking packs per day: 1 Smoking cigarettes per day: 20.0 Years smoked: 20 Smoking pack-years: 20.00 Smoking status: Current every day smoker Tobacco type: cigarettes Second hand tobacco smoke exposure: Yes Alcohol intake: current Alcohol use details: social drinker Substance use: never Substance use type: does not use Lack of Transportation: No Lack of Food: Never True Current Housing: I Have Housing Concerned About Future Housing: No Difficulty Paying Gas/Electric Bills: No Difficulty Paying for Meds: No Currently Unemployed: No Education: High School Diploma/GED Difficulty w/ Childcare or Family Care: No Living arrangements: with friend(s) Occupation/Education: retired Gender identity (if verbalized by the patient): Female Sexual Orientation (if Verbalized by the Patient): Straight or Heterosexual Exam Const: General: healthy appearing Nutritional Appearance: well nourished Orientation/consciousness: patient oriented x3 Limitations: no limitations HENMT: Head: normal to inspection Ears: external ears normal Face/Nose/Sinus: Normal external nose present Eyes: Conjunctivae: conjunctivae normal Pupils: Equal, round and reactive pupils present EOM: EOMs intact bilaterally Neck: Neck: normal visual inspection Chest: Chest palpation & inspection: normal inspection of the chest Resp: Effort & Inspection: normal respiratory effort, not labored, no retractions, not tachypneic and no use of accessory muscles Auscultation: not clear to auscultation bilaterally, no crackles, no rales, rhonchi, no wheezes, breath sounds present and diminished lung sounds Cardio: Rate: regular rate Rhythm: regular rhythm Heart sounds: no murmurs GI: Inspection: distended GI Palp: No Soft to palpation and No Tenderness to palpation present (GI) Auscultation: normal bowel sounds : General: Yes bladder normal to palpation Back/Spine/Pelvis: Back: no CVA tenderness Skin: General skin exam: normal color Rashes: no rashes Wounds: no wounds Neuro: General: patient oriented x3, moves all extremities and no meningeal signs Extrem: General: normal to inspection, no clubbing, cyanosis or edema and no pedal edema Psych: Mental Status: mental status grossly normal Affect: normal affect Attitude: cooperative Course Vital Signs Vital signs: Vital Signs Pulse Oximetry 97 08/11/25 17:42 Oxygen Delivery Room Air 08/11/25 17:42 Pulse Oximetry 97 08/11/25 17:42 Oxygen Delivery Room Air 08/11/25 17:42 MDM MDM Narrative Medical decision making narrative: Patient is a 65-year-old female with a cough and congestion with some green discolored phlegm for the past week. Chest x-ray. COVID swab. Differential Diagnosis Differential Diagnosis: Bronchitis Lab Data Labs: Lab Results 08/11/25 Range/Units 17:52 Influenza A (RT-PCR) Negative (Negative) Influenza B (RT-PCR) Negative (Negative) RSV (RT-PCR) Negative (Negative) SARS-CoV-2 RNA (RT-PCR) Negative (Negative) Imaging Data Attestation: I personally reviewed and interpreted this imaging study as follows: Radiologist's impression: ITS Impressions Chest X-Ray 08/11/25 18:18 IMPRESSION: 1: NO ACUTE CARDIOPULMONARY DISEASE. Discharge Plan Discharge Clinical Impression: Acute bacterial bronchitis Patient Disposition: Home Condition: Stable Instructions: Antibiotic Form, Acute Bronchitis (ED) Patient Language: Tamazight Prescriptions: New amoxicillin-pot clavulanate [Augmentin] 500-125 mg tablet 1 tablet PO BID 10 Days Qty: 20 0RF prednisone 20 mg tablet 40 mg PO DAILY 3 Days Qty: 6 0RF No Action trazodone 50 mg tablet famotidine 20 mg tablet amlodipine 10 mg tablet buspirone 10 mg tablet mirtazapine 15 mg tablet levetiracetam 1,000 mg tablet PO albuterol sulfate 2.5 mg /3 mL (0.083 %) solution for nebulization 2.5 mg inhalation Q4-6H PRN (Reason: shortness of breath or wheezing) Qty: 180 3RF fluticasone furoate-vilanterol [Breo Ellipta] 100-25 mcg/dose blister with device 1 ea INHALATION DAILY lorazepam 0.5 mg tablet 0.5 mg PO BID PRN (Reason: anxiety) Qty: 10 0RF lisinopril 40 mg tablet See Rx Instructions .ROUTE .COMPLEX Qty: 90 2RF Dose Instruction: TAKE 1 TABLET BY MOUTH EVERY DAY Rx Instructions: TAKE 1 TABLET BY MOUTH EVERY DAY rosuvastatin [Crestor] 10 mg tablet 10 mg PO DAILY Qty: 90 2RF meloxicam 15 mg tablet 15 mg PO DAILY Qty: 30 3RF Rx Instructions: take with food ropinirole 1 mg tablet 1 mg PO TID Qty: 270 1RF alendronate 70 mg tablet See Rx Instructions .ROUTE .COMPLEX Qty: 12 2RF Dose Instruction: TAKE 1 TABLET BY MOUTH ONCE WEEKLY Rx Instructions: TAKE 1 TABLET BY MOUTH ONCE WEEKLY Follow-up/Referrals: Azeem Bess MD [Primary Care Provider, Internal Medicine] Time of Disposition: 19:02
--- NOTE | 2025-08-11 17:52 | PC.NURSE ---
Pt to radiology with radiology transport.
[2025-08-11 18:00] VITALS: BP 138/66; PULSE 62; RESP 14; TEMP 36.8; O2SAT 96
--- NOTE | 2025-08-11 18:08 | PC.NURSE ---
Pt back in room from radiology.
[2025-08-11 18:36] LABS: Influenza A QL RT-PCR Negative (Negative); Influenza B QL RT-PCR Negative (Negative); RSV RNA, RT-PCR Negative (Negative); SARS-CoV-2 RNA PCR Negative (Negative)
--- NOTE | 2025-08-11 19:12 | PC.NURSE ---
Handoff report given to Kelly MELISSA.
== END 2025-08-11 19:24 | disposition home or self-care (01) ==
PROVIDERS: Emergency Provider Emergency Medicine; PCP Family Medicine
DX: J20.9 Acute bronchitis, unspecified (principal); E78.2 Mixed hyperlipidemia; I12.9 Hypertensive chronic kidney disease with stage 1 through stage 4 chronic kidney disease, or unspecified chronic kidney disease; N18.30 Chronic kidney disease, stage 3 unspecified; F17.210 Nicotine dependence, cigarettes, uncomplicated; Z79.899 Other long term (current) drug therapy; Z20.822 Contact with and (suspected) exposure to COVID-19
CPT/HCPCS: 71046; 87637; 99283; A9270